=== PATIENT | male | born 1965 | race Two or more races ===

== ENCOUNTER 2017-02-23 08:00 | Inpatient (IN) | payer MEDICAID ==
[~2017-02-23] VITALS: Ht 172.7 cm; Wt 72.6 kg
[2017-02-23] VITALS (35 sets, daily range): BP systolic 57–111; BP diastolic 36–63
[2017-02-23 08:55] LABS: HEMATOCRIT 29.1 % (42.0-52.0); HEMOGLOBIN 10.8 G/DL (14.2-18.0); MEAN CORPUSCULAR VOLUME 104 FL (80-99); PLATELET COUNT 108 K/UL (150-450); RED BLOOD COUNT 2.82 M/UL (4.70-6.10); RED CELL DISTRIBUTION WIDTH 10.9 % (11.6-14.8); WHITE BLOOD COUNT 20.2 K/UL (4.8-10.8)
[2017-02-23 09:00] LABS: AMMONIA 307 umol/L (11-32)
[2017-02-23 09:03] LABS: ANION GAP 26 mmol/L (5-15); BLOOD UREA NITROGEN 189 mg/dL (7-18); CALCIUM 6.6 MG/DL (8.5-10.1); CARBON DIOXIDE 12 MMOL/L (21-32); CHLORIDE 89 MMOL/L (98-107); CREATININE 9.9 MG/DL (0.55-1.30); SODIUM 127 MMOL/L (136-145)
[2017-02-23 09:15] LABS: ALANINE AMINOTRANSFERASE 68 U/L (12-78); ALBUMIN 1.1 G/DL (3.4-5.0); ALBUMIN/GLOBULIN RATIO 0.2 (1.0-2.7); ALKALINE PHOSPHATASE 225 U/L (46-116); ASPARTATE AMINO TRANSFERASE 195 U/L (15-37); BILIRUBIN,DIRECT 13.8 MG/DL (0.0-0.3); BILIRUBIN,TOTAL 17.4 MG/DL (0.2-1.0); CKMB 24.4 NG/ML (0.0-3.6); CREATINE KINASE 684 U/L (26-308)
[2017-02-23] MEDS ORDERED: FUROSEMIDE20 M1 ORAL (09:15)
[2017-02-23] MEDS ORDERED: FOLIC ACID1 MG ORAL (09:15)
[2017-02-23] MEDS ORDERED: MULTIVITAMINS1 EAC8 ORAL (09:15)
[2017-02-23] MEDS ORDERED: CARVEDILOL3.125 MG ORAL (09:15)
[2017-02-23] MEDS ORDERED: SPIRONOLACTONE100 MG ORAL (09:15)
[2017-02-23] MEDS ORDERED: VITAMIN B-1100 MG ORAL (09:16)
[2017-02-23] MEDS ORDERED: Meropenem 1 GM in NS 55 ML IVPB ONE (10:15)
[2017-02-23] MEDS ORDERED: Vancomycin 1 GM in NS 275 ML IVPB ONE (10:15)
[2017-02-23] MEDS ORDERED: Lactulose 20gm/30ml UDC ORAL ONE (10:15)
--- NOTE | 2017-02-23 10:29 | Diagnostic Imaging Report ---
Indication: Dyspnea Comparison: None A single view chest radiograph was obtained. Findings: Cardiomediastinal appearance is within normal limits for age and considering low lung volume. Pulmonary vascularity is appropriate. The diaphragmatic contour is smooth and costophrenic angles are sharp. No pleural effusions are identified. The bones are osteopenic. Impression: No acute findings
[2017-02-23 10:46] LABS: APPEARANCE,URINE SLIGHTLY CLOUDY; BILIRUBIN, URINE 3+ (NEGATIVE); COLOR,URINE BROWN; GLUCOSE, URINE (UA) NEGATIVE (NEGATIVE); KETONES,URINE NEGATIVE (NEGATIVE); LEUKOCYTE ESTERASE ,URINE 1+ (NEGATIVE); NITRITE,URINE POSITIVE (NEGATIVE); PH,URINE 5 (4.5-8.0); PROTEIN,URINE 2+ (NEGATIVE); UROBILINOGEN,URINE 4 MG/DL (0.0-1.0)
[2017-02-23] MEDS ORDERED: Meropenem 1gm vial ONE (10:56)
--- NOTE | 2017-02-23 11:02 | Emergency Room Report ---
History of Present Illness General Chief Complaint: Altered Level of Consciousness Source: Family Member, Medical Record Present Illness HPI This patient apparently has a history severe alcohol abuse and has recently been diagnosed with cirrhosis at [facility]. He was discharged 2 weeks ago. He is brought in by his he states that over night last night and this morning he has become less responsive and confused. The patient is unable to give a history. She denies fever or chills. She denies vomiting. He has been taking his medications as prescribed. There are no other complaints. Allergies: Coded Allergies: No Known Allergies (Verified , 02/27/11) Patient History Past Medical History: see triage record, CHF, other - Cirrhosis, UGI Bleed Social History: Reports: alcohol use, Denies: smoking, drug use Reviewed Nursing Documentation: PMH: Agreed, PSxH: Agreed Nursing Documentation-PMH Past Medical History: No History, Except For Review of Systems All Other Systems: negative except mentioned in HPI Physical Exam Vital Signs Date Time Temp Pulse Resp B/P (MAP) Pulse Ox O2 Delivery O2 Flow Rate FiO2 02/23/17 07:54 95.0 72 17 99/52 99 Room Air Sp02 EP Interpretation: reviewed, normal General Appearance: no apparent distress, other - Altered, somnolent Head: normocephalic, atraumatic Eyes: bilateral eye normal inspection, bilateral eye PERRL, bilateral eye scleral icterus ENT: no angioedema Neck: normal inspection, full range of motion Respiratory: chest non-tender, lungs clear, normal breath sounds, no respiratory distress, no retraction, no accessory muscle use Cardiovascular #1: regular rate, rhythm, no edema Gastrointestinal: normal bowel sounds, non tender, soft, no guarding, no rebound, distended Rectal: deferred Musculoskeletal: swelling - anasarca Neurologic: alert, oriented x3, responsive, motor strength/tone normal, sensory intact, speech normal Skin: jaundice, other - anasarca Procedures Central Line Central Line : Consent: Emergent Central Line Lumen: triple Maximal Sterile Barrier Tech: yes cap, yes mask, yes sterile gown, yes sterile gloves, yes large sterile sheet, yes hand hygiene, yes chlorhexidine prep Central Line Postion: femoral (R) Complications: none Central Line Post Position: sutured, good blood return Attempts: One Patient Tolerated: Well Complications: None Intubation Intubation : Consent: Emergent Time of Intubation: 12:30 Intubation Method: orotracheal Tube Size (cm): 7.5 Medications: Etomidate, Rocuronium Breath Sounds after Intubation: equal Intubation Complications: no complications Post Intubation Xray: Yes Progress/Xray Impression: appropriate tube placement Attempts: One Patient Tolerated: Well Medical Decision Making Diagnostic Impression: Primary Impression: Renal failure Additional Impressions: Sepsis Hypoglycemia Hyponatremia Hepatic encephalopathy Elevated troponin Lactic acidosis Respiratory failure Septic shock ER Course This patient is critically ill. He is in renal failure. He also has end-stage liver disease and has hepatic encephalopathy. He was able to see make on arrival. He also has hyponatremia and elevated troponin. He has a lactic acidosis. He since white blood cell count is elevated. Given the patient's severe renal failure and cirrhosis I was very gentle with IV fluids. He was given 1 L of IV fluids with plans to place a dialysis catheter in undergo dialysis. He was given D50 here in the emergency department. He was also given broad-spectrum antibiotics for a presumed bacteremia or other infectious etiology. An NG tube was placed with lactulose given for the hepatic encephalopathy. He is admitted to the ICU.The patient deteriorated in the emergency department. He continued to have a GCS of 3 and did not improve. He began having agonal breathing. He was intubated by rapid symptoms and the patient without complication or incident. He also developed hypotension after the intubation which is likely medication related, however, I did place a central line in the right femoral vein in the standard fashion and started pressors. He was transferred to the ICU. This patient is critically ill. This patient required complex medical decision- making, aggressive intervention, extensive laboratory workup and monitoring. Critical care time: 40 minutes. Laboratory Tests Test 02/23/17 08:15 02/23/17 10:10 White Blood Count 20.2 K/UL (4.8-10.8) H Red Blood Count 2.82 M/UL (4.70-6.10) L Hemoglobin 10.8 G/DL (14.2-18.0) L Hematocrit 29.1 % (42.0-52.0) L Mean Corpuscular Volume 104 FL (80-99) H Mean Corpuscular Hemoglobin 38.2 PG (27.0-31.0) H Mean Corpuscular Hemoglobin Concent 36.9 G/DL (32.0-36.0) H Red Cell Distribution Width 10.9 % (11.6-14.8) L Platelet Count 108 K/UL (150-450) L Mean Platelet Volume 8.3 FL (6.5-10.1) Neutrophils (%) (Auto) % (45.0-75.0) Lymphocytes (%) (Auto) % (20.0-45.0) Monocytes (%) (Auto) % (1.0-10.0) Eosinophils (%) (Auto) % (0.0-3.0) Basophils (%) (Auto) % (0.0-2.0) Differential Total Cells Counted 100 Neutrophils % (Manual) 85 % (45-75) H Lymphocytes % (Manual) 6 % (20-45) L Monocytes % (Manual) 9 % (1-10) Eosinophils % (Manual) 0 % (0-3) Basophils % (Manual) 0 % (0-2) Band Neutrophils 0 % (0-8) Nucleated Red Blood Cells 1 /100 WBC Platelet Estimate Decreased L Platelet Morphology Normal Hypochromasia 1+ Anisocytosis 1+ Macrocytosis 1+ Spherocytes 2+ Sodium Level 127 MMOL/L (136-145) L Potassium Level 4.0 MMOL/L (3.5-5.1) Chloride Level 89 MMOL/L (98-107) L Carbon Dioxide Level 12 MMOL/L (21-32) L Anion Gap 26 mmol/L (5-15) H Blood Urea Nitrogen 189 mg/dL (7-18) H Creatinine 9.9 MG/DL (0.55-1.30) H Estimate Glomerular Filtration Rate 5.6 mL/min (>60) Glucose Level 52 MG/DL (74-106) L Lactic Acid Level 5.90 mmol/L (0.66-2.22) H Calcium Level 6.6 MG/DL (8.5-10.1) L Total Bilirubin 17.4 MG/DL (0.2-1.0) H Direct Bilirubin 13.8 MG/DL (0.0-0.3) H Aspartate Amino Transferase (AST) 195 U/L (15-37) H Alanine Aminotransferase (ALT) 68 U/L (12-78) Alkaline Phosphatase 225 U/L (46-116) H Ammonia 307 umol/L (11-32) H Total Creatine Kinase 684 U/L (26-308) H Creatine Kinase MB 24.4 NG/ML (0.0-3.6) H Creatine Kinase MB Relative Index 3.5 Troponin I 0.065 ng/mL (0.000-0.056) Total Protein 6.3 G/DL (6.4-8.2) L Albumin 1.1 G/DL (3.4-5.0) L Globulin 5.2 g/dL Albumin/Globulin Ratio 0.2 (1.0-2.7) L Urine Color Brown Urine Appearance Slightly cloudy Urine pH 5 (4.5-8.0) Urine Specific [place] 1.020 (1.005-1.035) Urine Protein 2+ (NEGATIVE) H Urine Glucose (UA) Negative (NEGATIVE) Urine Ketones Negative (NEGATIVE) Urine Occult Blood 2+ (NEGATIVE) H Urine Nitrite Positive (NEGATIVE) H Urine Bilirubin 3+ (NEGATIVE) H Urine Ictotest Positive Urine Urobilinogen 4 MG/DL (0.0-1.0) H Urine Leukocyte Esterase 1+ (NEGATIVE) H Urine RBC 5-10 /HPF (0 - 0) H Urine WBC 2-4 /HPF (0 - 0) Urine Squamous Epithelial Cells Moderate /LPF (NONE/OCC) H Urine Amorphous Sediment Many /LPF (NONE) H Urine Bacteria Moderate /HPF (NONE) H EKG Diagnostic Results Rate: normal ST Segments: no acute changes Rhythm Strip Diag. Results EP Interpretation: yes Rate: 70's Rhythm: NSR, no PVC's, no ectopy Chest X-Ray Diagnostic Results Chest X-Ray Diagnostic Results : Chest X-Ray Ordered: Yes # of Views/Limited/Complete: 1 View Indication: Other - AMS EP Interpretation: Yes Interpretation: no consolidation, no effusion, no pneumothorax, no acute cardiopulmonary disease Impression: No acute disease Last Vital Signs Date Time Temp Pulse Resp B/P (MAP) Pulse Ox O2 Delivery O2 Flow Rate FiO2 02/23/17 10:23 92.0 28 92/46 100 Room Air 02/23/17 09:00 70 Disposition: ADMITTED INPATIENT Condition: Critical Referrals: NOT CHOSEN IPA/,REFERRING (PCP) CHRISTINA CAMPBELL D.O. Feb 23, 2017 11:02
[2017-02-23] MEDS ORDERED: Vancomycin 1gm inj IVPB ONE (11:13)
[2017-02-23] MEDS ORDERED: Albuterol/Ipratropium 3ml neb HHN PRN (11:15)
[2017-02-23] MEDS ORDERED: Morphine Sulfate 4mg/ml Inj IVP PRN (11:15)
[2017-02-23] MEDS ORDERED: Miralax 17gm pkt ORAL PRN (11:15)
--- NOTE | 2017-02-23 12:29 | Diagnostic Imaging Report ---
Indication: NG tube placement Comparison: 02/23/2017 at 08:37 A single view chest radiograph was obtained. Findings: Nasogastric tube is been placed and is in good position with the proximal and distal ports in the stomach. No change otherwise. IMPRESSION: NG tube in good position
[2017-02-23] MEDS ORDERED: Levophed 4mg/4mL Inj IV ONE (13:03)
--- NOTE | 2017-02-23 13:14 | Consultation ---
Consult Note Consult Note This patient apparently has a history severe alcohol abuse and has recently been diagnosed with cirrhosis at [facility]. He was discharged 2 weeks ago. He is brought in by his he states that over night last night and this morning he has become less responsive and confused. The patient is unable to give a history. She denies fever or chills. She denies vomiting. He has been taking his medications as prescribed. There are no other complaints. Assessment/Plan Renal failure acute Sepsis, Shock Hypoglycemia Hyponatremia Hepatic encephalopathy Elevated troponin Lactic acidosis Respiratory failure on vent Poor prognosis foly hydrate dialysis attempt? if hemodynamically stable fluid challenge pressors steroids JORDON PRETTY Feb 23, 2017 13:14
[2017-02-23] MEDS ORDERED: Amikacin Rx to dose MISC PRN (13:15)
--- NOTE | 2017-02-23 13:53 | Diagnostic Imaging Report ---
Indication: Intubation Comparison: Earlier today A single view chest radiograph was obtained. Findings: Endotracheal tube is in the proximal right mainstem bronchus and should be pulled up slightly. NG tube remains in good position. No change otherwise. IMPRESSION: Right mainstem intubation
[2017-02-23] MEDS ORDERED: Pantoprazole Inj IVP SCH ×2 (14:00→21:00)
[2017-02-23] MEDS ORDERED: Hydrocortisone 100mg Inj IV ONE (14:00)
--- NOTE | 2017-02-23 14:07 | Consultation ---
History of Present Illness General Date patient seen: Feb 23, 2017 Time patient seen: 14:02 Chief Complaint: Altered Level of Consciousness Present Illness HPI 51 y/o M with hx of CHF, Ethanol Cirrhosis (recently diagnosed), UGIB presents to ED on 02/23 due to unresponsiveness and confusion. In ED found to be septic with hypothermia Tmin 91.4, hypotensive to 80s, Jocelyne with Cr up to 9.9, lactic acidosis and WBC up to 20.2. Intubated, started on pressors and plan for HD. On IV Vanco, Meropenem and Amikacin. No reported f/c, vomiting Of note recently discharged from [facility] 2 weeks ago where he was diagnosed with cirrhosis Allergies: Coded Allergies: No Known Allergies (Verified , 02/27/11) Medication History Scheduled Carvedilol* (Carvedilol*), 3.125 MG ORAL EVERY 12 HOURS, (Reported) Folic Acid* (Folic Acid*), 1 MG ORAL DAILY, (Reported) Furosemide* (Lasix*), 20 MG ORAL DAILY, (Reported) Multivitamin With Minerals (Multivitamins With Minerals*), 1 TAB ORAL DAILY, ( Reported) Spironolactone* (Spironolactone*), 50 MG ORAL DAILY, (Reported) Thiamine Hcl* (Vitamin B-1*), 100 MG ORAL DAILY, (Reported) Patient History Healthcare decision maker Resuscitation status Full Code Advanced Directive on File No Patient History Narrative PHx: as above Shx: Reports: alcohol use, Denies: smoking, drug use Fhx: non contributory Review of Systems ROS Narrative unable to obtain Physical Exam Physical Exam Narrative General Appearance: no apparent distress, other - Altered, somnolent Head: normocephalic, atraumatic Eyes: bilateral eye normal inspection, bilateral eye PERRL, bilateral eye scleral icterus ENT: no angioedema Neck: normal inspection, full range of motion Respiratory: coarse BS Cardiovascular : regular rate, rhythm, no edema Gastrointestinal: normal bowel sounds, non tender, soft, no guarding, no rebound, distended Musculoskeletal: swelling - anasarca Skin: jaundice, other - anasarca Last 24 Hour Vital Signs Date Time Temp Pulse Resp B/P (MAP) Pulse Ox O2 Delivery O2 Flow Rate FiO2 02/23/17 13:36 40 1/11/18 13:33 79/47 02/23/17 13:28 80/40 02/23/17 13:23 79/46 02/23/17 13:13 67/41 02/23/17 13:04 80 19 40 02/23/17 12:44 94.2 12 57/36 Mechanical Ventilator 02/23/17 12:12 94.2 77 25 92/54 99 Room Air 02/23/17 10:23 92.0 28 92/46 100 Room Air 02/23/17 09:05 91.1 89/50 02/23/17 09:00 91.1 70 24 83/53 100 Room Air 02/23/17 07:54 95.0 72 17 99/52 99 Room Air Laboratory Tests Test 02/23/17 08:15 02/23/17 10:10 02/23/17 11:34 White Blood Count 20.2 K/UL (4.8-10.8) H Red Blood Count 2.82 M/UL (4.70-6.10) L Hemoglobin 10.8 G/DL (14.2-18.0) L Hematocrit 29.1 % (42.0-52.0) L Mean Corpuscular Volume 104 FL (80-99) H Mean Corpuscular Hemoglobin 38.2 PG (27.0-31.0) H Mean Corpuscular Hemoglobin Concent 36.9 G/DL (32.0-36.0) H Red Cell Distribution Width 10.9 % (11.6-14.8) L Platelet Count 108 K/UL (150-450) L Mean Platelet Volume 8.3 FL (6.5-10.1) Neutrophils (%) (Auto) % (45.0-75.0) Lymphocytes (%) (Auto) % (20.0-45.0) Monocytes (%) (Auto) % (1.0-10.0) Eosinophils (%) (Auto) % (0.0-3.0) Basophils (%) (Auto) % (0.0-2.0) Differential Total Cells Counted 100 Neutrophils % (Manual) 85 % (45-75) H Lymphocytes % (Manual) 6 % (20-45) L Monocytes % (Manual) 9 % (1-10) Eosinophils % (Manual) 0 % (0-3) Basophils % (Manual) 0 % (0-2) Band Neutrophils 0 % (0-8) Nucleated Red Blood Cells 1 /100 WBC Platelet Estimate Decreased L Platelet Morphology Normal Hypochromasia 1+ Anisocytosis 1+ Macrocytosis 1+ Spherocytes 2+ Sodium Level 127 MMOL/L (136-145) L Potassium Level 4.0 MMOL/L (3.5-5.1) Chloride Level 89 MMOL/L (98-107) L Carbon Dioxide Level 12 MMOL/L (21-32) L Anion Gap 26 mmol/L (5-15) H Blood Urea Nitrogen 189 mg/dL (7-18) H Creatinine 9.9 MG/DL (0.55-1.30) H Estimat Glomerular Filtration Rate 5.6 mL/min (>60) Glucose Level 52 MG/DL (74-106) L Lactic Acid Level 5.90 mmol/L (0.66-2.22) H 6.80 mmol/L (0.66-2.22) H Calcium Level 6.6 MG/DL (8.5-10.1) L Total Bilirubin 17.4 MG/DL (0.2-1.0) H Direct Bilirubin 13.8 MG/DL (0.0-0.3) H Aspartate Amino Transf (AST/SGOT) 195 U/L (15-37) H Alanine Aminotransferase (ALT/SGPT) 68 U/L (12-78) Alkaline Phosphatase 225 U/L (46-116) H Ammonia 307 umol/L (11-32) H Total Creatine Kinase 684 U/L (26-308) H Creatine Kinase MB 24.4 NG/ML (0.0-3.6) H Creatine Kinase MB Relative Index 3.5 Troponin I 0.065 ng/mL (0.000-0.056) Total Protein 6.3 G/DL (6.4-8.2) L Albumin 1.1 G/DL (3.4-5.0) L Globulin 5.2 g/dL Albumin/Globulin Ratio 0.2 (1.0-2.7) L Urine Color Brown Urine Appearance Slightly cloudy Urine pH 5 (4.5-8.0) Urine Specific [place] 1.020 (1.005-1.035) Urine Protein 2+ (NEGATIVE) H Urine Glucose (UA) Negative (NEGATIVE) Urine Ketones Negative (NEGATIVE) Urine Occult Blood 2+ (NEGATIVE) H Urine Nitrite Positive (NEGATIVE) H Urine Bilirubin 3+ (NEGATIVE) H Urine Ictotest Positive Urine Urobilinogen 4 MG/DL (0.0-1.0) H Urine Leukocyte Esterase 1+ (NEGATIVE) H Urine RBC 5-10 /HPF (0 - 0) H Urine WBC 2-4 /HPF (0 - 0) Urine Squamous Epithelial Cells Moderate /LPF (NONE/OCC) H Urine Amorphous Sediment Many /LPF (NONE) H Urine Bacteria Moderate /HPF (NONE) H Height (Feet): 5 Height (Inches): 8.00 Weight (Pounds): 160 Medications Current Medications Medications (Trade) Dose Ordered Sig/Gabby Route PRN Reason Start Time Stop Time Status Last Admin Dose Admin Acetaminophen (Tylenol) 650 mg Q4H PRN ORAL fever (temp> 100.5F) 02/23/17 11:15 03/25/17 11:14 Albuterol/ Ipratropium (Albuterol/ Ipratropium) 3 ml Q4H PRN HHN Shortness of Breath 02/23/17 11:15 02/28/17 11:14 Amikacin Protocol (Amikacin pharmacy to dose) 1 ea DAILY PRN MISC PER RX PROTOCOL 02/23/17 13:15 03/25/17 13:14 Amikacin Sulfate 500 mg/Sodium Chloride 112 ml @ 224 mls/hr ONCE ONCE IV 02/23/17 15:00 02/23/17 15:29 Dextrose/Sodium Chloride 1,000 ml @ 125 mls/hr Q8H IV 02/23/17 14:00 03/25/17 13:59 Ertapenem 0.5 gm/ Sodium Chloride 55 ml @ 110 mls/hr Q24H IV 02/24/17 11:00 03/01/17 10:59 Heparin Sodium (Porcine) (Heparin 5000 units/ml) 5,000 units EVERY 12 HOURS SUBQ 02/23/17 21:00 03/25/17 20:59 Hydrocortisone (Solu-CORTEF) 100 mg EVERY 8 HOURS IV 02/23/17 22:00 03/25/17 21:59 Hydrocortisone (Solu-CORTEF) 100 mg ONCE ONCE IV 02/23/17 14:00 02/23/17 14:01 Norepinephrine Bitartrate 4 mg/ Dextrose 254 ml @ 0 mls/hr Q24H IV 02/23/17 11:15 03/25/17 11:14 02/23/17 13:13 Ondansetron HCl (Zofran) 4 mg Q6H PRN IVP Nausea & Vomiting 02/23/17 11:15 03/25/17 11:14 Pantoprazole (Protonix) 40 mg DAILY IVP 02/23/17 14:00 03/25/17 13:59 Pantoprazole (Protonix) 40 mg DAILY IVP 02/24/17 09:00 03/26/17 08:59 Pantoprazole (Protonix) 40 mg EVERY 12 HOURS IVP 02/23/17 21:00 02/23/17 21:01 Vancomycin HCl (Vanco rx to dose) 1 ea DAILY PRN MISC PER RX PROTOCOL 02/23/17 13:15 03/25/17 13:14 Assessment/Plan Assessment/Plan Abx: IV Vanco 02/23- Meropenem 02/23- Amikacin 02/23- Assessment: Septic Shock- r/o SBP, bacteremia, UTI -u/a WBC 2-4, nit +, leuk est +1; ucx p -Bcx p -CXR: no acute findings Hypothermia/Leukocytosis Acute renal failure to be started on HD Lactic acidosis Anion gap metabolic acidosis Transaminitis (AST) Ethanol Cirrhosis Plan: -Continue IV Vanco, Meropenem and Amikacin #1 pending cultures -f/u cx -Monitor CBC/BMP, temperatures -ETT/ICU care -Aspiration precautions Thank you for this consultation. Will continue to follow along with you. Discussed with Jolie Rick M.D. Feb 23, 2017 14:07
[2017-02-23] MEDS: D5NS 1,000 ML IV SCH ×2 (14:20→23:18)
[2017-02-23] MEDS ORDERED: Amikacin 500 MG in NS 110 ML IV ONE (15:00)
--- NOTE | 2017-02-23 15:39 | Diagnostic Imaging Report ---
Indication: Patient requires hemodialysis. Findings: After the indications, procedure, risks, complications, and alternatives of the procedure were explained, written informed consent was obtained. The neck was prepped with alcohol. All elements of maximal sterile barrier technique were followed including usage of a cap, mask, sterile gown, sterile gloves, hand hygiene and a large sterile sheet. 1% lidocaine was used to anesthetize the skin. Sonographic evaluation was performed demonstrating a patent and compressible jugular vein. Access was obtained under real-time ultrasound guidance using an 18 gauge needle and a digital image was saved in archive. An 0.035 wire was then advanced into the vein. Needle exchanged for a dilator. A temporary hemodialysis catheter was then advanced over the wire. Wire was removed. Catheter was secured to the skin using 2-0 Prolene suture. Both ports aspirate and flush easily. The procedure was performed at the bedside. Postprocedure chest x-ray shows good positioning of the catheter with the tip at the junction of the right atrium and SVC.. Impression: Successful placement of right jugular hemodialysis catheter.
[2017-02-23] MEDS ORDERED: Sodium Bicarbonate 50ml Carp IV ONE (16:40)
--- NOTE | 2017-02-23 19:46 | Pulmonolgy Critical Care Note ---
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 Critical Care - Objective Last 24 Hour Vital Signs Date Time Temp Pulse Resp B/P (MAP) Pulse Ox O2 Delivery O2 Flow Rate FiO2 02/23/17 19:29 26 79/69 98 Endotracheal Tube 02/23/17 19:29 02/23/17 19:25 96 33 30 02/23/17 19:00 83/51 02/23/17 19:00 94 22 83/51 93 Mechanical Ventilator 30 02/23/17 18:45 94 19 84/46 94 Mechanical Ventilator 30 02/23/17 18:30 89 21 90/51 93 Mechanical Ventilator 30 02/23/17 18:15 90 24 91/50 96 Mechanical Ventilator 30 02/23/17 18:00 86 22 88/46 96 Mechanical Ventilator 30 02/23/17 18:00 88/46 02/23/17 17:45 84 18 83/45 96 Mechanical Ventilator 30 02/23/17 17:30 82 19 81/41 96 Mechanical Ventilator 30 02/23/17 17:30 30 02/23/17 17:19 82/44 02/23/17 17:15 83 19 82/44 99 Mechanical Ventilator 40 02/23/17 17:05 83 18 30 02/23/17 17:00 85 19 88/45 99 Mechanical Ventilator 40 02/23/17 17:00 88/45 02/23/17 16:45 85 16 88/44 99 Mechanical Ventilator 40 02/23/17 16:30 83 18 88/47 98 Mechanical Ventilator 40 02/23/17 16:15 83 19 89/47 99 Mechanical Ventilator 40 02/23/17 16:00 95.2 82 22 91/45 100 Mechanical Ventilator 40 02/23/17 16:00 40 02/23/17 16:00 91/45 02/23/17 15:45 81 20 97/52 99 Mechanical Ventilator 40 02/23/17 15:32 30 02/23/17 15:30 83 19 91/47 99 Mechanical Ventilator 40 02/23/17 15:25 81 20 40 02/23/17 15:15 82 18 90/44 99 Mechanical Ventilator 40 02/23/17 15:00 95/49 02/23/17 15:00 83 22 95/49 100 Mechanical Ventilator 40 02/23/17 14:45 82 21 97/52 99 Mechanical Ventilator 40 02/23/17 14:30 83 22 97/54 98 Mechanical Ventilator 40 02/23/17 14:27 95.0 81 18 100 02/23/17 14:15 81 18 98/56 100 Mechanical Ventilator 40 02/23/17 14:00 95.0 80 20 89/54 100 Mechanical Ventilator 40 02/23/17 14:00 40 02/23/17 14:00 89/52 02/23/17 14:00 80 02/23/17 13:50 80 19 40 02/23/17 13:36 40 02/23/17 13:33 79/47 02/23/17 13:28 80/40 02/23/17 13:23 79/46 02/23/17 13:13 67/41 02/23/17 13:04 80 19 40 02/23/17 12:44 94.2 12 57/36 Mechanical Ventilator 02/23/17 12:12 94.2 77 25 92/54 99 Room Air 02/23/17 10:23 92.0 28 92/46 100 Room Air 02/23/17 09:05 91.1 89/50 02/23/17 09:00 91.1 70 24 83/53 100 Room Air 02/23/17 07:54 95.0 72 17 99/52 99 Room Air Status: awake, obtunded Condition: critical Neck: full ROM Heart: HR/BP stable Abdomen: soft Micro: Microbiology Date/Time Source Procedure Growth Status 02/23/17 17:00 Nasopharynx Influenza Types A,B Antigen (KAYKAY) - Final Complete Accucheck: 82 Critical Care - Subjective ROS Limited/Unobtainable: Yes ICU Day: 1 Intubation Day: 1 Interval Events: 51 year old male with history of severe alcohol abuse and has recently been diagnosed with cirrhosis at [facility]. He was discharged 2 weeks ago. He is brought in by his he states that over night last night and this morning he has become less responsive and confused. The patient is unable to give a history. She denies fever or chills. He was found to be in Multi-organ failure, basically dying of end stage liver failure. He was intubated and dialyzed in ER and transferred to ICU. Condition: critical FI02: 30 Vent Support Breath Rate: 16 Vent Support Mode: AC Vent Tidal Volume: 450 Sputum Amount: Moderate PEEP: 5.0 PIP: 16 Fluids: d5 NS 150 Drips: levophed CXR: ET at Mandi, ET-Tube: 7.5 ET Position: 22 Labs: Laboratory Tests Test 02/23/17 08:15 02/23/17 10:10 02/23/17 11:34 02/23/17 15:00 White Blood Count 20.2 K/UL (4.8-10.8) H Red Blood Count 2.82 M/UL (4.70-6.10) L Hemoglobin 10.8 G/DL (14.2-18.0) L Hematocrit 29.1 % (42.0-52.0) L Mean Corpuscular Volume 104 FL (80-99) H Mean Corpuscular Hemoglobin 38.2 PG (27.0-31.0) H Mean Corpuscular Hemoglobin Concent 36.9 G/DL (32.0-36.0) H Red Cell Distribution Width 10.9 % (11.6-14.8) L Platelet Count 108 K/UL (150-450) L Mean Platelet Volume 8.3 FL (6.5-10.1) Neutrophils (%) (Auto) % (45.0-75.0) Lymphocytes (%) (Auto) % (20.0-45.0) Monocytes (%) (Auto) % (1.0-10.0) Eosinophils (%) (Auto) % (0.0-3.0) Basophils (%) (Auto) % (0.0-2.0) Differential Total Cells Counted 100 Neutrophils % (Manual) 85 % (45-75) H Lymphocytes % (Manual) 6 % (20-45) L Monocytes % (Manual) 9 % (1-10) Eosinophils % (Manual) 0 % (0-3) Basophils % (Manual) 0 % (0-2) Band Neutrophils 0 % (0-8) Nucleated Red Blood Cells 1 /100 WBC Platelet Estimate Decreased L Platelet Morphology Normal Hypochromasia 1+ Anisocytosis 1+ Macrocytosis 1+ Spherocytes 2+ Sodium Level 127 MMOL/L (136-145) L Potassium Level 4.0 MMOL/L (3.5-5.1) Chloride Level 89 MMOL/L (98-107) L Carbon Dioxide Level 12 MMOL/L (21-32) L Anion Gap 26 mmol/L (5-15) H Blood Urea Nitrogen 189 mg/dL (7-18) H Creatinine 9.9 MG/DL (0.55-1.30) H Estimat Glomerular Filtration Rate 5.6 mL/min (>60) Glucose Level 52 MG/DL (74-106) L Lactic Acid Level 5.90 mmol/L (0.66-2.22) H 6.80 mmol/L (0.66-2.22) H Calcium Level 6.6 MG/DL (8.5-10.1) L Total Bilirubin 17.4 MG/DL (0.2-1.0) H Direct Bilirubin 13.8 MG/DL (0.0-0.3) H Aspartate Amino Transf (AST/SGOT) 195 U/L (15-37) H Alanine Aminotransferase (ALT/SGPT) 68 U/L (12-78) Alkaline Phosphatase 225 U/L (46-116) H Ammonia 307 umol/L (11-32) H Total Creatine Kinase 684 U/L (26-308) H Creatine Kinase MB 24.4 NG/ML (0.0-3.6) H Creatine Kinase MB Relative Index 3.5 Troponin I 0.065 ng/mL (0.000-0.056) Total Protein 6.3 G/DL (6.4-8.2) L Albumin 1.1 G/DL (3.4-5.0) L Globulin 5.2 g/dL Albumin/Globulin Ratio 0.2 (1.0-2.7) L Urine Color Brown Urine Appearance Slightly cloudy Urine pH 5 (4.5-8.0) Urine Specific [place] 1.020 (1.005-1.035) Urine Protein 2+ (NEGATIVE) H Urine Glucose (UA) Negative (NEGATIVE) Urine Ketones Negative (NEGATIVE) Urine Occult Blood 2+ (NEGATIVE) H Urine Nitrite Positive (NEGATIVE) H Urine Bilirubin 3+ (NEGATIVE) H Urine Ictotest Positive Urine Urobilinogen 4 MG/DL (0.0-1.0) H Urine Leukocyte Esterase 1+ (NEGATIVE) H Urine RBC 5-10 /HPF (0 - 0) H Urine WBC 2-4 /HPF (0 - 0) Urine Squamous Epithelial Cells Moderate /LPF (NONE/OCC) H Urine Amorphous Sediment Many /LPF (NONE) H Urine Bacteria Moderate /HPF (NONE) H Arterial Blood pH 7.060 (7.350-7.450) Arterial Blood Partial Pressure CO2 44.3 mmHg (35.0-45.0) Arterial Blood Partial Pressure O2 157.2 mmHg (75.0-100.0) H Arterial Blood HCO3 12.5 mmol/L (22.0-26.0) L Arterial Blood Oxygen Saturation 98.2 % (92.0-98.0) H Arterial Blood Base Excess -17.0 Nigel Test Positive Test 02/23/17 17:00 Lactic Acid Level 5.00 mmol/L (0.66-2.22) H KAT DARNELL Feb 23, 2017 19:46
--- NOTE | 2017-02-23 20:01 | History & Physical ---
History and Physical History & Physicial Dictated for Int Med-Dr Zuniga no. [id number]. ICU CHU ESQUIVEL Feb 23, 2017 20:01
[2017-02-23] MEDS: Heparin 5000 units/ml inj SUBQ SCH (21:00)
[2017-02-23] MEDS: Hydrocortisone 100mg Inj IV SCH (23:19)
[2017-02-23] MEDS ORDERED: Vancomycin 1 GM in D5W 275 ML IV SCH (23:45)
[2017-02-24] VITALS (49 sets, daily range): BP systolic 99–123; BP diastolic 43–76
--- NOTE | 2017-02-24 00:45 | History and Physical Report ---
DATE OF ADMISSION: 02/23/2017 Dictating for Raz Zuniga M.D. CHIEF COMPLAINT: The patient is a 51-year-old male, who presents with chief complaint of altered mental status. HISTORY OF PRESENT ILLNESS: Much of the history and physical is obtained from the patient's chart. The patient herself is unable to contribute much to the history and physical. The patient was apparently admitted to [facility] two weeks ago. The patient was diagnosed with alcoholic cirrhosis of liver. The patient was discharged home. According to the patient's , she found him less responsive this morning. The patient is also confused. The patient presented to [facility]. The patient is admitted with altered mental status to rule out hepatic encephalopathy versus sepsis. PAST MEDICAL HISTORY: Significant for: 1. Alcoholic cirrhosis of the liver. 2. Alcohol dependence. 3. History of upper gastrointestinal hemorrhage. PAST SURGICAL HISTORY: The patient denies. CURRENT MEDICATIONS: 1. Carvedilol 3.125 mg p.o. daily. 2. Folic acid 1 mg p.o. daily 3. Lasix 20 mg p.o. daily. 4. Spironolactone 50 mg p.o. daily. 5. Vitamin B1 100 mg p.o. daily. ALLERGIES: No known drug allergies. SOCIAL HISTORY: The patient is . The patient admits to alcohol use as above. The patient denies tobacco use. REVIEW OF SYSTEMS: Unable to assess secondary to the patient's mental status. PHYSICAL EXAMINATION: VITAL SIGNS: Temperature 95.2, respirations 22, pulse 82, and blood pressure 91/45. GENERAL: The patient is a well-developed male, who is confused. HEENT: Eyes, pupils equal and responsive to light and accommodation. Extraocular movements are intact. NECK: Supple without lymphadenopathy. CHEST: Lungs are clear to auscultation bilaterally without wheezes or rales. The patient is on mechanical ventilation. CARDIOVASCULAR: Regular rate. S1 and S2 are normal. ABDOMEN: Soft, nontender, nondistended. Positive bowel sounds. No evidence of hepatosplenomegaly. Currently, no rebound or guarding noted. EXTREMITIES: Negative for clubbing, cyanosis, or edema. NEUROLOGIC: Cranial nerves II through XII are grossly intact without focal deficits. LABORATORY STUDIES: WBC 20.3, hemoglobin 10.8, hematocrit 29.1, and platelets 108,000. Sodium 127, potassium 4.0, chloride 89, CO2 12, BUN 189, creatinine 9.9, and glucose 52. Lactic acid 5.9. Troponin 0.065. Liver function tests were elevated with AST of 195 and alkaline phosphatase of 225. ASSESSMENT: This is a 51-year-old male with: 1. Respiratory failure. 2. Altered mental status. 3. Alcohol dependence. 4. Congestive heart failure. 5. Alcoholic cirrhosis of the liver. 6. Elevated liver function tests. 7. Metabolic acidosis. TREATMENT: 1. Respiratory failure. Pulmonary consultation has been obtained with Dr. Mi. The patient is currently on a mechanical ventilator. We will follow recommendations of pulmonary. 2. Altered mental status. This may be secondary to sepsis versus hypoxia. An infectious disease consultation has been obtained with Dr. Sandoval. We will follow recommendations of infectious disease. 3. Alcohol dependence. 4. Congestive heart failure. Continue Lasix as above. 5. Alcoholic cirrhosis of the liver. 6. Elevated liver function tests, this is probably secondary to chronic alcoholism. 7. Metabolic acidosis. Lalito Singh M.D. DR: EMANUEL JOB#: [id number] CC:
[2017-02-24 05:33] LABS: PLATELET COUNT 60 K/UL (150-450); RED CELL DISTRIBUTION WIDTH 11.5 % (11.6-14.8)
[2017-02-24 05:55] LABS: AMMONIA 144 umol/L (11-32)
[2017-02-24] MEDS: D5NS 1,000 ML IV SCH ×3 (06:04→21:56)
[2017-02-24] MEDS: Hydrocortisone 100mg Inj IV SCH ×3 (06:04→21:56)
[2017-02-24 06:06] LABS: ALANINE AMINOTRANSFERASE 113 U/L (12-78); ALBUMIN 1.5 G/DL (3.4-5.0); ALBUMIN/GLOBULIN RATIO 0.3 (1.0-2.7); ALKALINE PHOSPHATASE 220 U/L (46-116); ANION GAP 18 mmol/L (5-15); ASPARTATE AMINO TRANSFERASE 481 U/L (15-37); BILIRUBIN,TOTAL 19.3 MG/DL (0.2-1.0); BLOOD UREA NITROGEN 94 mg/dL (7-18); CALCIUM 6.1 MG/DL (8.5-10.1); CARBON DIOXIDE 23 MMOL/L (21-32); CHLORIDE 99 MMOL/L (98-107); CREATININE 6.2 MG/DL (0.55-1.30); POTASSIUM 3.5 MMOL/L (3.5-5.1); SODIUM 140 MMOL/L (136-145)
[2017-02-24 06:12] LABS: WHITE BLOOD COUNT 37.8 K/UL (4.8-10.8)
[2017-02-24 06:23] LABS: CREATINE KINASE 634 U/L (26-308); GAMMA GLUTAMYL TRANSPEPTIDASE 150 U/L (5-85)
[2017-02-24 06:42] LABS: CHOLESTEROL < 50 MG/DL (< 200); HDL CHOLESTEROL 9 MG/DL (40-60); TRIGLYCERIDES 88 MG/DL (30-150)
[2017-02-24 07:28] LABS: BILIRUBIN,DIRECT 14.6 MG/DL (0.0-0.3)
[2017-02-24 07:33] LABS: PHOSPHORUS 5.8 MG/DL (2.5-4.9)
[2017-02-24] MEDS: Heparin 5000 units/ml inj SUBQ SCH ×2 (08:58→21:24)
[2017-02-24] MEDS ORDERED: Pantoprazole Inj IVP SCH (09:00)
[2017-02-24] MEDS ORDERED: Vancomycin 1gm/D5W 275ml IVPB ONE ×2 (10:00)
--- NOTE | 2017-02-24 10:28 | Pulmonolgy Critical Care Note ---
Critical Care - Asmt/Plan Problems: (1) Multiorgan failure (2) Septic shock (3) Respiratory failure (4) Hepatic encephalopathy (5) Renal failure Respiratory: monitor respiratory rate, adjust FIO2, CXR Cardiac: continue to monitor HR/BP Renal: F/U I&O Infectious Disease: check cultures Gastrointestinal: hold feedings Endocrine: monitor blood sugar, check TSH Hematologic: monitor H/H Neurologic: PRN Morphine Notes Reviewed: er rn Discussed with: nurses, consultants, case supervisor, other - I suggest end of life care and terminal extubation. Critical Care - Objective Last 24 Hour Vital Signs Date Time Temp Pulse Resp B/P (MAP) Pulse Ox O2 Delivery O2 Flow Rate FiO2 02/24/17 08:48 92 29 30 02/24/17 08:00 30 02/24/17 08:00 96 02/24/17 08:00 110/59 02/24/17 06:56 94 29 30 02/24/17 06:04 100/50 02/24/17 05:22 98 29 30 02/24/17 04:00 115/60 02/24/17 04:00 30 02/24/17 04:00 102 02/24/17 03:15 104 29 30 02/24/17 03:00 107/53 02/24/17 02:00 107/56 02/24/17 01:30 105 28 115/62 100 Mechanical Ventilator 30 02/24/17 01:15 101 28 30 02/24/17 01:00 101 28 109/59 100 Mechanical Ventilator 30 02/24/17 01:00 109/59 02/24/17 00:30 105 28 99/56 100 Mechanical Ventilator 30 02/24/17 00:08 79/45 02/24/17 00:00 99.0 104 28 102/43 100 Mechanical Ventilator 30 02/24/17 00:00 30 02/23/17 23:30 106 27 108/57 100 Mechanical Ventilator 30 02/23/17 23:18 96/58 02/23/17 23:13 106 29 30 02/23/17 23:00 106 27 96/58 99 Mechanical Ventilator 30 02/23/17 22:30 106 27 111/43 99 Mechanical Ventilator 30 02/23/17 22:00 105 26 102/50 99 Mechanical Ventilator 30 02/23/17 22:00 102/50 02/23/17 21:30 104 25 105/53 99 Mechanical Ventilator 30 02/23/17 21:24 108 31 30 02/23/17 21:00 110/54 02/23/17 21:00 105 25 110/54 96 Mechanical Ventilator 30 02/23/17 20:30 105 25 110/63 96 Mechanical Ventilator 30 02/23/17 20:00 98.8 99 22 92/50 93 Mechanical Ventilator 30 02/23/17 20:00 30 02/23/17 20:00 92/50 02/23/17 20:00 100 02/23/17 19:29 26 79/69 98 Endotracheal Tube 02/23/17 19:29 02/23/17 19:25 96 33 30 02/23/17 19:00 83/51 02/23/17 19:00 94 22 83/51 93 Mechanical Ventilator 30 02/23/17 18:45 94 19 84/46 94 Mechanical Ventilator 30 02/23/17 18:30 89 21 90/51 93 Mechanical Ventilator 30 02/23/17 18:15 90 24 91/50 96 Mechanical Ventilator 30 02/23/17 18:00 86 22 88/46 96 Mechanical Ventilator 30 02/23/17 18:00 88/46 02/23/17 17:45 84 18 83/45 96 Mechanical Ventilator 30 02/23/17 17:30 82 19 81/41 96 Mechanical Ventilator 30 02/23/17 17:30 30 02/23/17 17:19 82/44 02/23/17 17:15 83 19 82/44 99 Mechanical Ventilator 40 02/23/17 17:05 83 18 30 02/23/17 17:00 85 19 88/45 99 Mechanical Ventilator 40 02/23/17 17:00 88/45 02/23/17 16:45 85 16 88/44 99 Mechanical Ventilator 40 02/23/17 16:30 83 18 88/47 98 Mechanical Ventilator 40 02/23/17 16:15 83 19 89/47 99 Mechanical Ventilator 40 02/23/17 16:00 95.2 82 22 91/45 100 Mechanical Ventilator 40 02/23/17 16:00 40 02/23/17 16:00 91/45 02/23/17 15:45 81 20 97/52 99 Mechanical Ventilator 40 02/23/17 15:32 30 02/23/17 15:30 83 19 91/47 99 Mechanical Ventilator 40 02/23/17 15:25 81 20 40 02/23/17 15:15 82 18 90/44 99 Mechanical Ventilator 40 02/23/17 15:00 95/49 02/23/17 15:00 83 22 95/49 100 Mechanical Ventilator 40 02/23/17 14:45 82 21 97/52 99 Mechanical Ventilator 40 02/23/17 14:30 83 22 97/54 98 Mechanical Ventilator 40 02/23/17 14:27 95.0 81 18 100 02/23/17 14:15 81 18 98/56 100 Mechanical Ventilator 40 02/23/17 14:00 95.0 80 20 89/54 100 Mechanical Ventilator 40 02/23/17 14:00 40 02/23/17 14:00 89/52 02/23/17 14:00 80 02/23/17 13:50 80 19 40 02/23/17 13:36 40 02/23/17 13:33 79/47 02/23/17 13:28 80/40 02/23/17 13:23 79/46 02/23/17 13:13 67/41 02/23/17 13:04 80 19 40 02/23/17 12:44 94.2 12 57/36 Mechanical Ventilator 02/23/17 12:12 94.2 77 25 92/54 99 Room Air Status: obtunded Condition: critical HEENT: atraumatic Lungs: clear Heart: HR/BP stable, regular Abdomen: non-tender, feeding tube Extremities: edema Decubiti: location Micro: Microbiology Date/Time Source Procedure Growth Status 02/23/17 17:00 Nasopharynx Influenza Types A,B Antigen (KAYKAY) - Final Complete 02/23/17 10:10 Urine,Clean Catch Urine Culture - Preliminary NO GROWTH Resulted Accucheck: 82 Critical Care - Subjective ROS Limited/Unobtainable: No ICU Day: 2 Condition: critical EKG Rhythm: Sinus Rhythm FI02: 30 Vent Support Breath Rate: 16 Vent Support Mode: AC Vent Tidal Volume: 450 Sputum Amount: Scant PEEP: 5.0 PIP: 16 I&O: Intake and Output 02/23/17 02/24/17 19:00 07:00 Intake Total 2524.41 ml 1483.14 ml Output Total 315 ml 0 ml Balance 2209.41 ml 1483.14 ml Intake IV Total 2524.41 ml 1483.14 ml Output Urine Total 65 ml 0 ml Gastric Drainage Total 250 ml # Bowel Movements 1 ET-Tube: 7.5 ET Position: 22 Labs: Laboratory Tests Test 02/23/17 11:34 02/23/17 15:00 02/23/17 17:00 02/24/17 04:45 Lactic Acid Level 6.80 mmol/L (0.66-2.22) H 5.00 mmol/L (0.66-2.22) H 5.90 mmol/L (0.66-2.22) H Arterial Blood pH 7.060 (7.350-7.450) Arterial Blood Partial Pressure CO2 44.3 mmHg (35.0-45.0) Arterial Blood Partial Pressure O2 157.2 mmHg (75.0-100.0) H Arterial Blood HCO3 12.5 mmol/L (22.0-26.0) L Arterial Blood Oxygen Saturation 98.2 % (92.0-98.0) H Arterial Blood Base Excess -17.0 Nigel Test Positive White Blood Count 37.8 K/UL (4.8-10.8) #*H Red Blood Count 2.44 M/UL (4.70-6.10) L Hemoglobin 9.7 G/DL (14.2-18.0) L Hematocrit 25.6 % (42.0-52.0) L Mean Corpuscular Volume 105 FL (80-99) H Mean Corpuscular Hemoglobin 39.7 PG (27.0-31.0) H Mean Corpuscular Hemoglobin Concent 37.8 G/DL (32.0-36.0) H Red Cell Distribution Width 11.5 % (11.6-14.8) L Platelet Count 60 K/UL (150-450) L Mean Platelet Volume 8.9 FL (6.5-10.1) Neutrophils (%) (Auto) % (45.0-75.0) Lymphocytes (%) (Auto) % (20.0-45.0) Monocytes (%) (Auto) % (1.0-10.0) Eosinophils (%) (Auto) % (0.0-3.0) Basophils (%) (Auto) % (0.0-2.0) Neutrophils % (Manual) Pending Lymphocytes % (Manual) Pending Platelet Estimate Pending Platelet Morphology Pending Sodium Level 140 MMOL/L (136-145) # Potassium Level 3.5 MMOL/L (3.5-5.1) Chloride Level 99 MMOL/L (98-107) Carbon Dioxide Level 23 MMOL/L (21-32) Anion Gap 18 mmol/L (5-15) H Blood Urea Nitrogen 94 mg/dL (7-18) #H Creatinine 6.2 MG/DL (0.55-1.30) H Estimat Glomerular Filtration Rate 9.6 mL/min (>60) Glucose Level 149 MG/DL (74-106) H Hemoglobin A1c 4.4 % (4.3-6.0) Uric Acid 9.4 MG/DL (2.6-7.2) H Calcium Level 6.1 MG/DL (8.5-10.1) L Phosphorus Level 5.8 MG/DL (2.5-4.9) H Magnesium Level 2.0 MG/DL (1.8-2.4) Total Bilirubin 19.3 MG/DL (0.2-1.0) H Direct Bilirubin 14.6 MG/DL (0.0-0.3) H Gamma Glutamyl Transpeptidase 150 U/L (5-85) H Aspartate Amino Transf (AST/SGOT) 481 U/L (15-37) H Alanine Aminotransferase (ALT/SGPT) 113 U/L (12-78) H Alkaline Phosphatase 220 U/L (46-116) H Ammonia 144 umol/L (11-32) H Total Creatine Kinase 634 U/L (26-308) H Troponin I 0.762 ng/mL (0.000-0.056) C-Reactive Protein, Quantitative 6.8 mg/dL (0.00-0.90) H Pro-B-Type Natriuretic Peptide 5660 pg/mL (0-125) H Total Protein 5.8 G/DL (6.4-8.2) L Albumin 1.5 G/DL (3.4-5.0) L Globulin 4.3 g/dL Albumin/Globulin Ratio 0.3 (1.0-2.7) L Triglycerides Level 88 MG/DL (30-150) Cholesterol Level < 50 MG/DL (< 200) LDL Cholesterol 20 mg/dL (<100) HDL Cholesterol 9 MG/DL (40-60) L Cholesterol/HDL Ratio 5.6 (3.3-4.4) H Vitamin B12 Level > 2000 PG/ML (193-986) H Random Vancomycin Level 10.8 ug/mL Test 02/24/17 06:30 02/24/17 08:00 Arterial Blood pH 7.430 (7.350-7.450) Arterial Blood Partial Pressure CO2 31.2 mmHg (35.0-45.0) L Arterial Blood Partial Pressure O2 85.2 mmHg (75.0-100.0) Arterial Blood HCO3 20.5 mmol/L (22.0-26.0) L Arterial Blood Oxygen Saturation 95.4 % (92.0-98.0) Arterial Blood Base Excess -3.1 Nigel Test Positive Lactic Acid Level 4.80 mmol/L (0.66-2.22) H KAT DARNELL Feb 24, 2017 10:28
[2017-02-24] MEDS ORDERED: Ertapenem 0.5 GM in NS 55 ML IV SCH (11:00)
[2017-02-24] MEDS: Meropenem 500 MG in NS 55 ML IVPB SCH (11:14)
[2017-02-24] MEDS: Pantoprazole Inj IVP SCH (11:14)
[2017-02-24 11:42] LABS: RED BLOOD COUNT 2.97 M/UL (4.70-6.10)
[2017-02-24 11:43] LABS: MEAN CORPUSCULAR VOLUME 94 FL (80-99)
--- NOTE | 2017-02-24 11:45 | Diagnostic Imaging Report ---
Indication: ET tube Dustman Technique: XRAY Chest 1v Comparison: 02/23/2017, 13:23 Findings: Interval retraction of ET tube, tip now approximately 2 cm above the shaunna. NG tube tip unchanged in the proximal stomach, side-port in the region of the GE junction. Advancement is recommended. Interval placement of right IJ approach central line. Catheter tip in the region of the cavoatrial junction. Heart size and mediastinal contours are stable. There is interval development of mild vascular congestion. There is no pneumothorax. There is patchy left basilar atelectasis. No pleural effusion. No acute osseous abnormality seen. Impression: Interval retraction of ET tube, tip now 2 cm above the shaunna. Interval placement of right IJ approach central venous catheter, tip in the region of the cavoatrial junction. No pneumothorax. NG tube tip is unchanged in position in the proximal stomach. Side port in the region of the gastroesophageal junction. Advancement is recommended for more ideal positioning. Interval development of mild vascular congestion patchy left basilar opacities thought to represent atelectasis. Clinical correlation and follow-up exam recommended.
[2017-02-24] MEDS ORDERED: Lactulose 20gm/30ml UDC NG SCH (12:00)
--- NOTE | 2017-02-24 13:29 | Cardiology Report ---
APPROVED REPORT EKG Measurement Heart [id number] Normal sinus rhythm Nonspecific T wave abnormality Abnormal ECG
--- NOTE | 2017-02-24 14:48 | Infectious Diseases Prog Note ---
Assessment/Plan Assessment/Plan Abx: IV Vanco 02/23- Meropenem 02/23- Amikacin 02/23- Assessment: Septic Shock- r/o SBP, bacteremia, UTI- ongoing/worsening- r/o candidemia -u/a WBC 2-4, nit +, leuk est +1; ucx NTD -Bcx p -CXR 02/24: Interval development of mild vascular congestion patchy left basilar opacities thought to represent atelectasis; sp cx p -CXR: no acute findings Hypothermia- now febrile/Leukocytosis, worsening Acute renal failure on HD Lactic acidosis, improving Anion gap metabolic acidosis Transaminitis (AST, now ALT; worsening) Ethanol Cirrhosis Plan: -Continue IV Vanco, Meropenem and Amikacin #2 and start empiric Micafungin pending cultures -f/u cx -Monitor CBC/BMP, temperatures -ETT/ICU care -Aspiration precautions -Cocci ab, CRAg Thank you for this consultation. Will continue to follow along with you. Discussed with RN. Subjective Allergies: Coded Allergies: No Known Allergies (Verified , 02/27/11) Subjective Tm 101 worsening leukocytosis cx P increased pressors requirements Objective Vital Signs Last 24 Hour Vital Signs Date Time Temp Pulse Resp B/P (MAP) Pulse Ox O2 Delivery O2 Flow Rate FiO2 02/24/17 13:02 86 24 30 02/24/17 12:00 85 02/24/17 12:00 30 02/24/17 12:00 86 23 119/63 97 Mechanical Ventilator 30 02/24/17 11:45 86 23 113/57 97 Mechanical Ventilator 30 02/24/17 11:30 86 23 117/61 97 Mechanical Ventilator 30 02/24/17 11:15 86 23 110/59 97 Mechanical Ventilator 30 02/24/17 11:00 87 23 102/54 97 Mechanical Ventilator 30 02/24/17 10:45 88 24 120/62 97 Mechanical Ventilator 30 02/24/17 10:31 89 25 30 02/24/17 10:30 88 25 114/64 97 Mechanical Ventilator 30 02/24/17 10:15 89 24 117/67 98 Mechanical Ventilator 30 02/24/17 10:00 89 25 123/65 97 Mechanical Ventilator 30 02/24/17 10:00 98.7 02/24/17 09:45 90 27 114/59 98 Mechanical Ventilator 30 02/24/17 09:30 91 29 122/65 97 Mechanical Ventilator 30 02/24/17 09:15 91 25 123/67 97 Mechanical Ventilator 30 02/24/17 09:00 91 26 123/67 97 Mechanical Ventilator 30 02/24/17 08:48 92 29 30 02/24/17 08:45 92 27 117/64 97 Mechanical Ventilator 30 02/24/17 08:30 93 25 115/62 97 Mechanical Ventilator 30 02/24/17 08:15 91 27 112/61 96 Mechanical Ventilator 30 02/24/17 08:00 30 02/24/17 08:00 96 02/24/17 08:00 101.0 93 26 107/57 95 Mechanical Ventilator 30 02/24/17 08:00 110/59 02/24/17 07:45 95 26 110/59 96 Mechanical Ventilator 30 02/24/17 07:30 96 26 117/60 97 Mechanical Ventilator 30 02/24/17 07:15 97 29 120/59 97 Mechanical Ventilator 30 02/24/17 07:00 96 25 112/61 95 Mechanical Ventilator 30 02/24/17 06:56 94 29 30 02/24/17 06:04 100/50 02/24/17 05:22 98 29 30 02/24/17 04:00 115/60 02/24/17 04:00 30 02/24/17 04:00 102 02/24/17 03:15 104 29 30 02/24/17 03:00 107/53 02/24/17 02:00 107/56 02/24/17 01:30 105 28 115/62 100 Mechanical Ventilator 30 02/24/17 01:15 101 28 30 02/24/17 01:00 101 28 109/59 100 Mechanical Ventilator 30 02/24/17 01:00 109/59 02/24/17 00:30 105 28 99/56 100 Mechanical Ventilator 30 02/24/17 00:08 79/45 02/24/17 00:00 99.0 104 28 102/43 100 Mechanical Ventilator 30 02/24/17 00:00 30 02/23/17 23:30 106 27 108/57 100 Mechanical Ventilator 30 02/23/17 23:18 96/58 02/23/17 23:13 106 29 30 02/23/17 23:00 106 27 96/58 99 Mechanical Ventilator 30 02/23/17 22:30 106 27 111/43 99 Mechanical Ventilator 30 02/23/17 22:00 105 26 102/50 99 Mechanical Ventilator 30 02/23/17 22:00 102/50 02/23/17 21:30 104 25 105/53 99 Mechanical Ventilator 30 02/23/17 21:24 108 31 30 02/23/17 21:00 110/54 02/23/17 21:00 105 25 110/54 96 Mechanical Ventilator 30 02/23/17 20:30 105 25 110/63 96 Mechanical Ventilator 30 02/23/17 20:00 98.8 99 22 92/50 93 Mechanical Ventilator 30 02/23/17 20:00 30 02/23/17 20:00 92/50 02/23/17 20:00 100 02/23/17 19:29 26 79/69 98 Endotracheal Tube 02/23/17 19:29 02/23/17 19:25 96 33 30 02/23/17 19:00 83/51 02/23/17 19:00 94 22 83/51 93 Mechanical Ventilator 30 02/23/17 18:45 94 19 84/46 94 Mechanical Ventilator 30 02/23/17 18:30 89 21 90/51 93 Mechanical Ventilator 30 02/23/17 18:15 90 24 91/50 96 Mechanical Ventilator 30 02/23/17 18:00 86 22 88/46 96 Mechanical Ventilator 30 02/23/17 18:00 88/46 02/23/17 17:45 84 18 83/45 96 Mechanical Ventilator 30 02/23/17 17:30 82 19 81/41 96 Mechanical Ventilator 30 02/23/17 17:30 30 02/23/17 17:19 82/44 02/23/17 17:15 83 19 82/44 99 Mechanical Ventilator 40 02/23/17 17:05 83 18 30 02/23/17 17:00 85 19 88/45 99 Mechanical Ventilator 40 02/23/17 17:00 88/45 02/23/17 16:45 85 16 88/44 99 Mechanical Ventilator 40 02/23/17 16:30 83 18 88/47 98 Mechanical Ventilator 40 02/23/17 16:15 83 19 89/47 99 Mechanical Ventilator 40 02/23/17 16:00 95.2 82 22 91/45 100 Mechanical Ventilator 40 02/23/17 16:00 40 02/23/17 16:00 91/45 02/23/17 15:45 81 20 97/52 99 Mechanical Ventilator 40 02/23/17 15:32 30 02/23/17 15:30 83 19 91/47 99 Mechanical Ventilator 40 02/23/17 15:25 81 20 40 02/23/17 15:15 82 18 90/44 99 Mechanical Ventilator 40 02/23/17 15:00 95/49 02/23/17 15:00 83 22 95/49 100 Mechanical Ventilator 40 02/23/17 14:45 82 21 97/52 99 Mechanical Ventilator 40 Height (Feet): 5 Height (Inches): 8.00 Weight (Pounds): 160 Objective General Appearance: no apparent distress, other - Altered, somnolent Head: normocephalic, atraumatic Eyes: bilateral eye normal inspection, bilateral eye PERRL, bilateral eye scleral icterus ENT: no angioedema Neck: normal inspection, full range of motion Respiratory: coarse BS Cardiovascular : regular rate, rhythm, no edema Gastrointestinal: normal bowel sounds, non tender, soft, no guarding, no rebound, distended Musculoskeletal: swelling - anasarca Skin: jaundice, other - anasarca Microbiology Date/Time Source Procedure Growth Status 02/23/17 17:00 Nasopharynx Influenza Types A,B Antigen (KAYKAY) - Final Complete 02/23/17 10:10 Urine,Clean Catch Urine Culture - Preliminary NO GROWTH Resulted Laboratory Tests Test 02/23/17 15:00 02/23/17 17:00 02/24/17 04:45 02/24/17 06:30 Arterial Blood pH 7.060 (7.350-7.450) 7.430 (7.350-7.450) Arterial Blood Partial Pressure CO2 44.3 mmHg (35.0-45.0) 31.2 mmHg (35.0-45.0) L Arterial Blood Partial Pressure O2 157.2 mmHg (75.0-100.0) H 85.2 mmHg (75.0-100.0) Arterial Blood HCO3 12.5 mmol/L (22.0-26.0) L 20.5 mmol/L (22.0-26.0) L Arterial Blood Oxygen Saturation 98.2 % (92.0-98.0) H 95.4 % (92.0-98.0) Arterial Blood Base Excess -17.0 -3.1 Nigel Test Positive Positive Lactic Acid Level 5.00 mmol/L (0.66-2.22) H 5.90 mmol/L (0.66-2.22) H White Blood Count 37.8 K/UL (4.8-10.8) #*H Red Blood Count 2.97 M/UL (4.70-6.10) L Hemoglobin 9.0 G/DL (14.2-18.0) L Hematocrit 27.0 % (42.0-52.0) L Mean Corpuscular Volume 94 FL (80-99) # Mean Corpuscular Hemoglobin 30.0 PG (27.0-31.0) Mean Corpuscular Hemoglobin Concent 33.0 G/DL (32.0-36.0) Red Cell Distribution Width 11.5 % (11.6-14.8) L Platelet Count 60 K/UL (150-450) L Mean Platelet Volume 8.9 FL (6.5-10.1) Neutrophils (%) (Auto) % (45.0-75.0) Lymphocytes (%) (Auto) % (20.0-45.0) Monocytes (%) (Auto) % (1.0-10.0) Eosinophils (%) (Auto) % (0.0-3.0) Basophils (%) (Auto) % (0.0-2.0) Differential Total Cells Counted 100 Neutrophils % (Manual) 93 % (45-75) H Lymphocytes % (Manual) 1 % (20-45) L Monocytes % (Manual) 6 % (1-10) Eosinophils % (Manual) 0 % (0-3) Basophils % (Manual) 0 % (0-2) Band Neutrophils 0 % (0-8) Platelet Estimate Decreased L Platelet Morphology Normal Hypochromasia 2+ Macrocytosis 1+ Sodium Level 140 MMOL/L (136-145) # Potassium Level 3.5 MMOL/L (3.5-5.1) Chloride Level 99 MMOL/L (98-107) Carbon Dioxide Level 23 MMOL/L (21-32) Anion Gap 18 mmol/L (5-15) H Blood Urea Nitrogen 94 mg/dL (7-18) #H Creatinine 6.2 MG/DL (0.55-1.30) H Estimat Glomerular Filtration Rate 9.6 mL/min (>60) Glucose Level 149 MG/DL (74-106) H Hemoglobin A1c 4.4 % (4.3-6.0) Uric Acid 9.4 MG/DL (2.6-7.2) H Calcium Level 6.1 MG/DL (8.5-10.1) L Phosphorus Level 5.8 MG/DL (2.5-4.9) H Magnesium Level 2.0 MG/DL (1.8-2.4) Total Bilirubin 19.3 MG/DL (0.2-1.0) H Direct Bilirubin 14.6 MG/DL (0.0-0.3) H Gamma Glutamyl Transpeptidase 150 U/L (5-85) H Aspartate Amino Transf (AST/SGOT) 481 U/L (15-37) H Alanine Aminotransferase (ALT/SGPT) 113 U/L (12-78) H Alkaline Phosphatase 220 U/L (46-116) H Ammonia 144 umol/L (11-32) H Total Creatine Kinase 634 U/L (26-308) H Troponin I 0.762 ng/mL (0.000-0.056) C-Reactive Protein, Quantitative 6.8 mg/dL (0.00-0.90) H Pro-B-Type Natriuretic Peptide 5660 pg/mL (0-125) H Total Protein 5.8 G/DL (6.4-8.2) L Albumin 1.5 G/DL (3.4-5.0) L Globulin 4.3 g/dL Albumin/Globulin Ratio 0.3 (1.0-2.7) L Triglycerides Level 88 MG/DL (30-150) Cholesterol Level < 50 MG/DL (< 200) LDL Cholesterol 20 mg/dL (<100) HDL Cholesterol 9 MG/DL (40-60) L Cholesterol/HDL Ratio 5.6 (3.3-4.4) H Vitamin B12 Level > 2000 PG/ML (193-986) H Random Vancomycin Level 10.8 ug/mL Test 02/24/17 08:00 Lactic Acid Level 4.80 mmol/L (0.66-2.22) H Current Medications Medications (Trade) Dose Ordered Sig/Gabby Route PRN Reason Start Time Stop Time Status Last Admin Dose Admin Acetaminophen (Tylenol) 650 mg Q4H PRN ORAL fever (temp> 100.5F) 02/23/17 11:15 03/25/17 11:14 02/24/17 08:58 Albuterol/ Ipratropium (Albuterol/ Ipratropium) 3 ml Q4H PRN HHN Shortness of Breath 02/23/17 11:15 02/28/17 11:14 Amikacin Protocol (Amikacin pharmacy to dose) 1 ea DAILY PRN MISC PER RX PROTOCOL 02/23/17 13:15 03/25/17 13:14 Dextrose/Sodium Chloride 1,000 ml @ 125 mls/hr Q8H IV 02/23/17 14:00 03/25/17 13:59 02/24/17 06:04 Heparin Sodium (Porcine) (Heparin 5000 units/ml) 5,000 units EVERY 12 HOURS SUBQ 02/23/17 21:00 03/25/17 20:59 Hydrocortisone (Solu-CORTEF) 100 mg EVERY 8 HOURS IV 02/23/17 22:00 03/25/17 21:59 02/24/17 06:04 Lactulose (Cephulac) 30 gm EVERY 6 HOURS NG 02/24/17 12:00 03/26/17 11:59 02/24/17 11:14 Meropenem 500 mg/ Sodium Chloride 55 ml @ 110 mls/hr Q24H IVPB 02/24/17 11:00 03/01/17 10:59 02/24/17 11:14 Norepinephrine Bitartrate 8 mg/ Dextrose 254 ml @ 0 mls/hr Q24H IV 02/23/17 17:01 03/25/17 17:00 02/24/17 06:04 Ondansetron HCl (Zofran) 4 mg Q6H PRN IVP Nausea & Vomiting 02/23/17 11:15 03/25/17 11:14 Pantoprazole (Protonix) 40 mg DAILY IVP 02/24/17 12:00 03/26/17 11:59 02/24/17 11:14 Vancomycin HCl (Vanco rx to dose) 1 ea DAILY PRN MISC PER RX PROTOCOL 02/23/17 13:15 03/25/17 13:14 Jolie Coleman M.D. Feb 24, 2017 14:48
--- NOTE | 2017-02-24 15:35 | Cardiology Progress Note ---
Assessment/Plan Assessment/Plan afr cirrhosis leukemoid reaction sbp? pulm htn etohism doubt chf normal systolic and diastolic function avoid syd and chf medication jacob bx vent support check protime [id number] Objective Last 24 Hour Vital Signs Date Time Temp Pulse Resp B/P (MAP) Pulse Ox O2 Delivery O2 Flow Rate FiO2 02/24/17 15:08 82 55 30 02/24/17 13:02 86 24 30 02/24/17 12:00 85 02/24/17 12:00 30 02/24/17 12:00 86 23 119/63 97 Mechanical Ventilator 30 02/24/17 11:45 86 23 113/57 97 Mechanical Ventilator 30 02/24/17 11:30 86 23 117/61 97 Mechanical Ventilator 30 02/24/17 11:15 86 23 110/59 97 Mechanical Ventilator 30 02/24/17 11:00 87 23 102/54 97 Mechanical Ventilator 30 02/24/17 10:45 88 24 120/62 97 Mechanical Ventilator 30 02/24/17 10:31 89 25 30 02/24/17 10:30 88 25 114/64 97 Mechanical Ventilator 30 02/24/17 10:15 89 24 117/67 98 Mechanical Ventilator 30 02/24/17 10:00 89 25 123/65 97 Mechanical Ventilator 30 02/24/17 10:00 98.7 02/24/17 09:45 90 27 114/59 98 Mechanical Ventilator 30 02/24/17 09:30 91 29 122/65 97 Mechanical Ventilator 30 02/24/17 09:15 91 25 123/67 97 Mechanical Ventilator 30 02/24/17 09:00 91 26 123/67 97 Mechanical Ventilator 30 02/24/17 08:48 92 29 30 02/24/17 08:45 92 27 117/64 97 Mechanical Ventilator 30 02/24/17 08:30 93 25 115/62 97 Mechanical Ventilator 30 02/24/17 08:15 91 27 112/61 96 Mechanical Ventilator 30 02/24/17 08:00 30 02/24/17 08:00 96 02/24/17 08:00 101.0 93 26 107/57 95 Mechanical Ventilator 30 02/24/17 08:00 110/59 02/24/17 07:45 95 26 110/59 96 Mechanical Ventilator 30 02/24/17 07:30 96 26 117/60 97 Mechanical Ventilator 30 1/12/18 07:15 97 29 120/59 97 Mechanical Ventilator 30 02/24/17 07:00 96 25 112/61 95 Mechanical Ventilator 30 02/24/17 06:56 94 29 30 02/24/17 06:04 100/50 02/24/17 05:22 98 29 30 02/24/17 04:00 115/60 02/24/17 04:00 30 02/24/17 04:00 102 02/24/17 03:15 104 29 30 02/24/17 03:00 107/53 02/24/17 02:00 107/56 02/24/17 01:30 105 28 115/62 100 Mechanical Ventilator 30 02/24/17 01:15 101 28 30 02/24/17 01:00 101 28 109/59 100 Mechanical Ventilator 30 02/24/17 01:00 109/59 02/24/17 00:30 105 28 99/56 100 Mechanical Ventilator 30 02/24/17 00:08 79/45 02/24/17 00:00 99.0 104 28 102/43 100 Mechanical Ventilator 30 02/24/17 00:00 30 02/23/17 23:30 106 27 108/57 100 Mechanical Ventilator 30 02/23/17 23:18 96/58 02/23/17 23:13 106 29 30 02/23/17 23:00 106 27 96/58 99 Mechanical Ventilator 30 02/23/17 22:30 106 27 111/43 99 Mechanical Ventilator 30 02/23/17 22:00 105 26 102/50 99 Mechanical Ventilator 30 02/23/17 22:00 102/50 02/23/17 21:30 104 25 105/53 99 Mechanical Ventilator 30 02/23/17 21:24 108 31 30 02/23/17 21:00 110/54 02/23/17 21:00 105 25 110/54 96 Mechanical Ventilator 30 02/23/17 20:30 105 25 110/63 96 Mechanical Ventilator 30 02/23/17 20:00 98.8 99 22 92/50 93 Mechanical Ventilator 30 02/23/17 20:00 30 02/23/17 20:00 92/50 02/23/17 20:00 100 02/23/17 19:29 26 79/69 98 Endotracheal Tube 02/23/17 19:29 02/23/17 19:25 96 33 30 02/23/17 19:00 83/51 02/23/17 19:00 94 22 83/51 93 Mechanical Ventilator 30 02/23/17 18:45 94 19 84/46 94 Mechanical Ventilator 30 02/23/17 18:30 89 21 90/51 93 Mechanical Ventilator 30 02/23/17 18:15 90 24 91/50 96 Mechanical Ventilator 30 02/23/17 18:00 86 22 88/46 96 Mechanical Ventilator 30 02/23/17 18:00 88/46 02/23/17 17:45 84 18 83/45 96 Mechanical Ventilator 30 02/23/17 17:30 82 19 81/41 96 Mechanical Ventilator 30 02/23/17 17:30 30 02/23/17 17:19 82/44 02/23/17 17:15 83 19 82/44 99 Mechanical Ventilator 40 02/23/17 17:05 83 18 30 02/23/17 17:00 85 19 88/45 99 Mechanical Ventilator 40 02/23/17 17:00 88/45 02/23/17 16:45 85 16 88/44 99 Mechanical Ventilator 40 02/23/17 16:30 83 18 88/47 98 Mechanical Ventilator 40 02/23/17 16:15 83 19 89/47 99 Mechanical Ventilator 40 02/23/17 16:00 95.2 82 22 91/45 100 Mechanical Ventilator 40 02/23/17 16:00 40 02/23/17 16:00 91/45 02/23/17 15:45 81 20 97/52 99 Mechanical Ventilator 40 Intake and Output 02/23/17 02/24/17 19:00 07:00 Intake Total 2524.41 ml 1483.14 ml Output Total 315 ml 0 ml Balance 2209.41 ml 1483.14 ml Intake IV Total 2524.41 ml 1483.14 ml Output Urine Total 65 ml 0 ml Gastric Drainage Total 250 ml # Bowel Movements 1 Laboratory Tests Test 02/23/17 17:00 02/24/17 04:45 02/24/17 06:30 02/24/17 08:00 Lactic Acid Level 5.00 mmol/L (0.66-2.22) H 5.90 mmol/L (0.66-2.22) H 4.80 mmol/L (0.66-2.22) H White Blood Count 37.8 K/UL (4.8-10.8) #*H Red Blood Count 2.97 M/UL (4.70-6.10) L Hemoglobin 9.0 G/DL (14.2-18.0) L Hematocrit 27.0 % (42.0-52.0) L Mean Corpuscular Volume 94 FL (80-99) # Mean Corpuscular Hemoglobin 30.0 PG (27.0-31.0) Mean Corpuscular Hemoglobin Concent 33.0 G/DL (32.0-36.0) Red Cell Distribution Width 11.5 % (11.6-14.8) L Platelet Count 60 K/UL (150-450) L Mean Platelet Volume 8.9 FL (6.5-10.1) Neutrophils (%) (Auto) % (45.0-75.0) Lymphocytes (%) (Auto) % (20.0-45.0) Monocytes (%) (Auto) % (1.0-10.0) Eosinophils (%) (Auto) % (0.0-3.0) Basophils (%) (Auto) % (0.0-2.0) Differential Total Cells Counted 100 Neutrophils % (Manual) 93 % (45-75) H Lymphocytes % (Manual) 1 % (20-45) L Monocytes % (Manual) 6 % (1-10) Eosinophils % (Manual) 0 % (0-3) Basophils % (Manual) 0 % (0-2) Band Neutrophils 0 % (0-8) Platelet Estimate Decreased L Platelet Morphology Normal Hypochromasia 2+ Macrocytosis 1+ Sodium Level 140 MMOL/L (136-145) # Potassium Level 3.5 MMOL/L (3.5-5.1) Chloride Level 99 MMOL/L (98-107) Carbon Dioxide Level 23 MMOL/L (21-32) Anion Gap 18 mmol/L (5-15) H Blood Urea Nitrogen 94 mg/dL (7-18) #H Creatinine 6.2 MG/DL (0.55-1.30) H Estimat Glomerular Filtration Rate 9.6 mL/min (>60) Glucose Level 149 MG/DL (74-106) H Hemoglobin A1c 4.4 % (4.3-6.0) Uric Acid 9.4 MG/DL (2.6-7.2) H Calcium Level 6.1 MG/DL (8.5-10.1) L Phosphorus Level 5.8 MG/DL (2.5-4.9) H Magnesium Level 2.0 MG/DL (1.8-2.4) Total Bilirubin 19.3 MG/DL (0.2-1.0) H Direct Bilirubin 14.6 MG/DL (0.0-0.3) H Gamma Glutamyl Transpeptidase 150 U/L (5-85) H Aspartate Amino Transf (AST/SGOT) 481 U/L (15-37) H Alanine Aminotransferase (ALT/SGPT) 113 U/L (12-78) H Alkaline Phosphatase 220 U/L (46-116) H Ammonia 144 umol/L (11-32) H Total Creatine Kinase 634 U/L (26-308) H Troponin I 0.762 ng/mL (0.000-0.056) C-Reactive Protein, Quantitative 6.8 mg/dL (0.00-0.90) H Pro-B-Type Natriuretic Peptide 5660 pg/mL (0-125) H Total Protein 5.8 G/DL (6.4-8.2) L Albumin 1.5 G/DL (3.4-5.0) L Globulin 4.3 g/dL Albumin/Globulin Ratio 0.3 (1.0-2.7) L Triglycerides Level 88 MG/DL (30-150) Cholesterol Level < 50 MG/DL (< 200) LDL Cholesterol 20 mg/dL (<100) HDL Cholesterol 9 MG/DL (40-60) L Cholesterol/HDL Ratio 5.6 (3.3-4.4) H Vitamin B12 Level > 2000 PG/ML (193-986) H Random Vancomycin Level 10.8 ug/mL Arterial Blood pH 7.430 (7.350-7.450) Arterial Blood Partial Pressure CO2 31.2 mmHg (35.0-45.0) L Arterial Blood Partial Pressure O2 85.2 mmHg (75.0-100.0) Arterial Blood HCO3 20.5 mmol/L (22.0-26.0) L Arterial Blood Oxygen Saturation 95.4 % (92.0-98.0) Arterial Blood Base Excess -3.1 Nigel Test Positive Microbiology Date/Time Source Procedure Growth Status 02/23/17 17:00 Nasopharynx Influenza Types A,B Antigen (KAYKAY) - Final Complete 02/23/17 10:10 Urine,Clean Catch Urine Culture - Preliminary NO GROWTH Resulted ISAAC RODRIGUES Feb 24, 2017 15:35
--- NOTE | 2017-02-24 16:35 | Nephrology Progress Note ---
Assessment/Plan Problem List: (1) Septic shock (2) Renal failure (3) Lactic acidosis (4) Multiorgan failure Assessment Renal failure acute Sepsis, Shock Hypoglycemia Hyponatremia Hepatic encephalopathy Elevated troponin Lactic acidosis Respiratory failure on vent Plan Poor prognosis molina hydrate dialysis attempt? done 02/23 repeat in am fluid challenge pressors steroids Subjective ROS Limited/Unobtainable: Yes Objective Objective Last 24 Hour Vital Signs Date Time Temp Pulse Resp B/P (MAP) Pulse Ox O2 Delivery O2 Flow Rate FiO2 02/24/17 16:00 99.8 84 20 110/65 99 Mechanical Ventilator 30 02/24/17 16:00 85 02/24/17 16:00 30 02/24/17 15:30 85 21 111/69 98 Mechanical Ventilator 30 02/24/17 15:08 82 55 30 02/24/17 15:00 84 21 118/66 98 Mechanical Ventilator 30 02/24/17 14:30 85 20 112/67 97 Mechanical Ventilator 30 02/24/17 14:00 86 23 108/66 97 Mechanical Ventilator 30 02/24/17 13:30 84 23 114/62 97 Mechanical Ventilator 30 02/24/17 13:02 86 24 30 02/24/17 13:00 85 22 110/62 97 Mechanical Ventilator 30 02/24/17 12:30 85 23 115/62 97 Mechanical Ventilator 30 02/24/17 12:00 85 02/24/17 12:00 30 02/24/17 12:00 86 23 119/63 97 Mechanical Ventilator 30 02/24/17 11:45 86 23 113/57 97 Mechanical Ventilator 30 02/24/17 11:30 86 23 117/61 97 Mechanical Ventilator 30 02/24/17 11:15 86 23 110/59 97 Mechanical Ventilator 30 02/24/17 11:00 87 23 102/54 97 Mechanical Ventilator 30 02/24/17 10:45 88 24 120/62 97 Mechanical Ventilator 30 02/24/17 10:31 89 25 30 02/24/17 10:30 88 25 114/64 97 Mechanical Ventilator 30 02/24/17 10:15 89 24 117/67 98 Mechanical Ventilator 30 02/24/17 10:00 89 25 123/65 97 Mechanical Ventilator 30 02/24/17 10:00 98.7 02/24/17 09:45 90 27 114/59 98 Mechanical Ventilator 30 02/24/17 09:30 91 29 122/65 97 Mechanical Ventilator 30 02/24/17 09:15 91 25 123/67 97 Mechanical Ventilator 30 02/24/17 09:00 91 26 123/67 97 Mechanical Ventilator 30 02/24/17 08:48 92 29 30 02/24/17 08:45 92 27 117/64 97 Mechanical Ventilator 30 02/24/17 08:30 93 25 115/62 97 Mechanical Ventilator 30 02/24/17 08:15 91 27 112/61 96 Mechanical Ventilator 30 02/24/17 08:00 30 02/24/17 08:00 96 02/24/17 08:00 101.0 93 26 107/57 95 Mechanical Ventilator 30 02/24/17 08:00 110/59 02/24/17 07:45 95 26 110/59 96 Mechanical Ventilator 30 02/24/17 07:30 96 26 117/60 97 Mechanical Ventilator 30 02/24/17 07:15 97 29 120/59 97 Mechanical Ventilator 30 02/24/17 07:00 96 25 112/61 95 Mechanical Ventilator 30 02/24/17 06:56 94 29 30 02/24/17 06:04 100/50 02/24/17 05:22 98 29 30 02/24/17 04:00 115/60 02/24/17 04:00 30 02/24/17 04:00 102 02/24/17 03:15 104 29 30 02/24/17 03:00 107/53 02/24/17 02:00 107/56 02/24/17 01:30 105 28 115/62 100 Mechanical Ventilator 30 02/24/17 01:15 101 28 30 02/24/17 01:00 101 28 109/59 100 Mechanical Ventilator 30 02/24/17 01:00 109/59 02/24/17 00:30 105 28 99/56 100 Mechanical Ventilator 30 02/24/17 00:08 79/45 02/24/17 00:00 99.0 104 28 102/43 100 Mechanical Ventilator 30 02/24/17 00:00 30 02/23/17 23:30 106 27 108/57 100 Mechanical Ventilator 30 02/23/17 23:18 96/58 02/23/17 23:13 106 29 30 02/23/17 23:00 106 27 96/58 99 Mechanical Ventilator 30 02/23/17 22:30 106 27 111/43 99 Mechanical Ventilator 30 02/23/17 22:00 105 26 102/50 99 Mechanical Ventilator 30 02/23/17 22:00 102/50 02/23/17 21:30 104 25 105/53 99 Mechanical Ventilator 30 02/23/17 21:24 108 31 30 02/23/17 21:00 110/54 02/23/17 21:00 105 25 110/54 96 Mechanical Ventilator 30 02/23/17 20:30 105 25 110/63 96 Mechanical Ventilator 30 02/23/17 20:00 98.8 99 22 92/50 93 Mechanical Ventilator 30 02/23/17 20:00 30 02/23/17 20:00 92/50 02/23/17 20:00 100 02/23/17 19:29 26 79/69 98 Endotracheal Tube 02/23/17 19:29 02/23/17 19:25 96 33 30 02/23/17 19:00 83/51 02/23/17 19:00 94 22 83/51 93 Mechanical Ventilator 30 02/23/17 18:45 94 19 84/46 94 Mechanical Ventilator 30 02/23/17 18:30 89 21 90/51 93 Mechanical Ventilator 30 02/23/17 18:15 90 24 91/50 96 Mechanical Ventilator 30 02/23/17 18:00 86 22 88/46 96 Mechanical Ventilator 30 02/23/17 18:00 88/46 02/23/17 17:45 84 18 83/45 96 Mechanical Ventilator 30 02/23/17 17:30 82 19 81/41 96 Mechanical Ventilator 30 02/23/17 17:30 30 02/23/17 17:19 82/44 02/23/17 17:15 83 19 82/44 99 Mechanical Ventilator 40 02/23/17 17:05 83 18 30 02/23/17 17:00 85 19 88/45 99 Mechanical Ventilator 40 02/23/17 17:00 88/45 02/23/17 16:45 85 16 88/44 99 Mechanical Ventilator 40 Intake and Output 02/23/17 02/24/17 19:00 07:00 Intake Total 2524.41 ml 1483.14 ml Output Total 315 ml 0 ml Balance 2209.41 ml 1483.14 ml Intake IV Total 2524.41 ml 1483.14 ml Output Urine Total 65 ml 0 ml Gastric Drainage Total 250 ml # Bowel Movements 1 Laboratory Tests 02/23/17 17:00: Lactic Acid Level 5.00H 02/24/17 04:45: Lactic Acid Level 5.90H, White Blood Count 37.8#*H, Red Blood Count 2.97L, Hemoglobin 9.0L, Hematocrit 27.0L, Mean Corpuscular Volume 94#, Mean Corpuscular Hemoglobin 30.0, Mean Corpuscular Hemoglobin Concent 33.0, Red Cell Distribution Width 11.5L, Platelet Count 60L, Mean Platelet Volume 8.9, Neutrophils (%) (Auto) , Lymphocytes (%) (Auto) , Monocytes (%) (Auto) , Eosinophils (%) (Auto) , Basophils (%) (Auto) , Differential Total Cells Counted 100, Neutrophils % (Manual) 93H, Lymphocytes % (Manual) 1L, Monocytes % (Manual) 6, Eosinophils % (Manual) 0, Basophils % (Manual) 0, Band Neutrophils 0 , Platelet Estimate DecreasedL, Platelet Morphology Normal, Hypochromasia 2+, Macrocytosis 1+, Sodium Level 140#, Potassium Level 3.5, Chloride Level 99, Carbon Dioxide Level 23, Anion Gap 18H, Blood Urea Nitrogen 94#H, Creatinine 6.2H, Estimat Glomerular Filtration Rate 9.6, Glucose Level 149H, Hemoglobin A1c 4.4, Uric Acid 9.4H, Calcium Level 6.1L, Phosphorus Level 5.8H, Magnesium Level 2.0, Total Bilirubin 19.3H, Direct Bilirubin 14.6H, Gamma Glutamyl Transpeptidase 150H, Aspartate Amino Transf (AST/SGOT) 481H, Alanine Aminotransferase (ALT/SGPT) 113H, Alkaline Phosphatase 220H, Ammonia 144H, Total Creatine Kinase 634H, Troponin I 0.762H, C-Reactive Protein, Quantitative 6.8H, Pro-B-Type Natriuretic Peptide 5660H, Total Protein 5.8L, Albumin 1.5L, Globulin 4.3, Albumin/Globulin Ratio 0.3L, Triglycerides Level 88, Cholesterol Level < 50, LDL Cholesterol 20, HDL Cholesterol 9L, Cholesterol/HDL Ratio 5.6H, Vitamin B12 Level > 2000H, Random Vancomycin Level 10.8 02/24/17 06:30: Arterial Blood pH 7.430, Arterial Blood Partial Pressure CO2 31.2L, Arterial Blood Partial Pressure O2 85.2, Arterial Blood HCO3 20.5L, Arterial Blood Oxygen Saturation 95.4, Arterial Blood Base Excess -3.1, Nigel Test Positive 02/24/17 08:00: Lactic Acid Level 4.80H Height (Feet): 5 Height (Inches): 8.00 Weight (Pounds): 160 General Appearance: no apparent distress, other - jaundiced EENT: other - intubated Respiratory/Chest: decreased breath sounds Abdomen: distended Neurologic: other - encephalopathic JORDON PRETTY Feb 24, 2017 16:35
[2017-02-24] MEDS ORDERED: Micafungin 100 MG in NS 110 ML IVPB SCH (17:00)
[2017-02-24] MEDS: Lactulose 20gm/30ml UDC NG SCH (17:29)
--- NOTE | 2017-02-24 17:32 | Diagnostic Imaging Report ---
Indication: Dyspnea Technique: XRAY Chest 1v Comparison: 02/23/2017 Findings: Endotracheal tube tip 2.4 cm above the shaunna. NG tube has been removed. Central venous catheter unchanged in position. Lung volumes are low. Heart size and mediastinal contours are stable. There is slight interval worsening of interstitial opacification/edema, finding which may be exaggerated due to lower lung volumes. No pneumothorax. Impression: Interval removal of NG tube. Apparent worsening of interstitial opacification/edema, finding which may be exaggerated due to lower lung volumes.
--- NOTE | 2017-02-24 19:30 | Internal Med Progress Note ---
Subjective Date of Service: Feb 24, 2017 Physician Name SinghChu toribio Attending Physician Raz Zuniga MD Current Medications Medications (Trade) Dose Ordered Sig/Gabby Route PRN Reason Start Time Stop Time Status Last Admin Dose Admin Acetaminophen (Tylenol) 650 mg Q4H PRN ORAL fever (temp> 100.5F) 02/23/17 11:15 03/25/17 11:14 02/24/17 17:30 Albuterol/ Ipratropium (Albuterol/ Ipratropium) 3 ml Q4H PRN HHN Shortness of Breath 02/23/17 11:15 02/28/17 11:14 Amikacin Protocol (Amikacin pharmacy to dose) 1 ea DAILY PRN MISC PER RX PROTOCOL 02/23/17 13:15 03/25/17 13:14 Dextrose/Sodium Chloride 1,000 ml @ 125 mls/hr Q8H IV 02/23/17 14:00 03/25/17 13:59 02/24/17 14:00 Heparin Sodium (Porcine) (Heparin 5000 units/ml) 5,000 units EVERY 12 HOURS SUBQ 02/23/17 21:00 03/25/17 20:59 Hydrocortisone (Solu-CORTEF) 100 mg EVERY 8 HOURS IV 02/23/17 22:00 03/25/17 21:59 02/24/17 14:00 Lactulose (Cephulac) 20 gm EVERY 6 HOURS NG 02/24/17 18:00 03/26/17 17:59 02/24/17 17:29 Meropenem 500 mg/ Sodium Chloride 55 ml @ 110 mls/hr Q24H IVPB 02/24/17 11:00 03/01/17 10:59 02/24/17 11:14 Micafungin Sodium 100 mg/Sodium Chloride 110 ml @ 110 mls/hr Q24H IVPB 02/24/17 17:00 03/03/17 16:59 02/24/17 17:29 Norepinephrine Bitartrate 8 mg/ Dextrose 254 ml @ 0 mls/hr Q24H IV 02/23/17 17:01 03/25/17 17:00 02/24/17 06:04 Ondansetron HCl (Zofran) 4 mg Q6H PRN IVP Nausea & Vomiting 02/23/17 11:15 03/25/17 11:14 Pantoprazole (Protonix) 40 mg DAILY IVP 02/24/17 12:00 03/26/17 11:59 02/24/17 11:14 Vancomycin HCl (Vanco rx to dose) 1 ea DAILY PRN MISC PER RX PROTOCOL 02/23/17 13:15 03/25/17 13:14 Allergies: Coded Allergies: No Known Allergies (Verified , 02/27/11) ROS Limited/Unobtainable: Yes Subjective 51 YO M admitted with altered mental status. Now Respiratory failure. Cover for Int Med-Dr Zuniga. ICU. Intubated and sedated Objective Last Vital Signs Date Time Temp Pulse Resp B/P (MAP) Pulse Ox O2 Delivery O2 Flow Rate FiO2 02/24/17 18:55 99.6 02/24/17 18:51 88 26 30 02/24/17 18:30 107/67 98 Mechanical Ventilator General Appearance: WD/WN, lethargic EENT: PERRL/EOMI, normal ENT inspection Neck: non-tender, normal alignment, supple, normal inspection Cardiovascular: normal peripheral pulses, normal rate, regular rhythm, no gallop/murmur, no JVD Respiratory/Chest: no accessory muscle use, respiratory distress, crackles/ rales, rhonchi - bilaterally, expiratory wheezing Abdomen: normal bowel sounds, non tender, soft, no organomegaly, no mass Extremities: normal range of motion Skin: normal pigmentation, warm/dry Laboratory Tests Test 02/24/17 04:45 02/24/17 06:30 02/24/17 08:00 White Blood Count 37.8 K/UL (4.8-10.8) #*H Red Blood Count 2.97 M/UL (4.70-6.10) L Hemoglobin 9.0 G/DL (14.2-18.0) L Hematocrit 27.0 % (42.0-52.0) L Mean Corpuscular Volume 94 FL (80-99) # Mean Corpuscular Hemoglobin 30.0 PG (27.0-31.0) Mean Corpuscular Hemoglobin Concent 33.0 G/DL (32.0-36.0) Red Cell Distribution Width 11.5 % (11.6-14.8) L Platelet Count 60 K/UL (150-450) L Mean Platelet Volume 8.9 FL (6.5-10.1) Neutrophils (%) (Auto) % (45.0-75.0) Lymphocytes (%) (Auto) % (20.0-45.0) Monocytes (%) (Auto) % (1.0-10.0) Eosinophils (%) (Auto) % (0.0-3.0) Basophils (%) (Auto) % (0.0-2.0) Differential Total Cells Counted 100 Neutrophils % (Manual) 93 % (45-75) H Lymphocytes % (Manual) 1 % (20-45) L Monocytes % (Manual) 6 % (1-10) Eosinophils % (Manual) 0 % (0-3) Basophils % (Manual) 0 % (0-2) Band Neutrophils 0 % (0-8) Platelet Estimate Decreased L Platelet Morphology Normal Hypochromasia 2+ Macrocytosis 1+ Sodium Level 140 MMOL/L (136-145) # Potassium Level 3.5 MMOL/L (3.5-5.1) Chloride Level 99 MMOL/L (98-107) Carbon Dioxide Level 23 MMOL/L (21-32) Anion Gap 18 mmol/L (5-15) H Blood Urea Nitrogen 94 mg/dL (7-18) #H Creatinine 6.2 MG/DL (0.55-1.30) H Estimat Glomerular Filtration Rate 9.6 mL/min (>60) Glucose Level 149 MG/DL (74-106) H Hemoglobin A1c 4.4 % (4.3-6.0) Lactic Acid Level 5.90 mmol/L (0.66-2.22) H 4.80 mmol/L (0.66-2.22) H Uric Acid 9.4 MG/DL (2.6-7.2) H Calcium Level 6.1 MG/DL (8.5-10.1) L Phosphorus Level 5.8 MG/DL (2.5-4.9) H Magnesium Level 2.0 MG/DL (1.8-2.4) Total Bilirubin 19.3 MG/DL (0.2-1.0) H Direct Bilirubin 14.6 MG/DL (0.0-0.3) H Gamma Glutamyl Transpeptidase 150 U/L (5-85) H Aspartate Amino Transf (AST/SGOT) 481 U/L (15-37) H Alanine Aminotransferase (ALT/SGPT) 113 U/L (12-78) H Alkaline Phosphatase 220 U/L (46-116) H Ammonia 144 umol/L (11-32) H Total Creatine Kinase 634 U/L (26-308) H Troponin I 0.762 ng/mL (0.000-0.056) C-Reactive Protein, Quantitative 6.8 mg/dL (0.00-0.90) H Pro-B-Type Natriuretic Peptide 5660 pg/mL (0-125) H Total Protein 5.8 G/DL (6.4-8.2) L Albumin 1.5 G/DL (3.4-5.0) L Globulin 4.3 g/dL Albumin/Globulin Ratio 0.3 (1.0-2.7) L Triglycerides Level 88 MG/DL (30-150) Cholesterol Level < 50 MG/DL (< 200) LDL Cholesterol 20 mg/dL (<100) HDL Cholesterol 9 MG/DL (40-60) L Cholesterol/HDL Ratio 5.6 (3.3-4.4) H Vitamin B12 Level > 2000 PG/ML (193-986) H Random Vancomycin Level 10.8 ug/mL Arterial Blood pH 7.430 (7.350-7.450) Arterial Blood Partial Pressure CO2 31.2 mmHg (35.0-45.0) L Arterial Blood Partial Pressure O2 85.2 mmHg (75.0-100.0) Arterial Blood HCO3 20.5 mmol/L (22.0-26.0) L Arterial Blood Oxygen Saturation 95.4 % (92.0-98.0) Arterial Blood Base Excess -3.1 Nigel Test Positive Microbiology Date/Time Source Procedure Growth Status 02/23/17 17:00 Nasopharynx Influenza Types A,B Antigen (KAYKAY) - Final Complete 02/23/17 10:10 Urine,Clean Catch Urine Culture - Preliminary NO GROWTH Resulted Intake and Output 02/23/17 02/24/17 19:00 07:00 Intake Total 2524.41 ml 1483.14 ml Output Total 315 ml 0 ml Balance 2209.41 ml 1483.14 ml Intake IV Total 2524.41 ml 1483.14 ml Output Urine Total 65 ml 0 ml Gastric Drainage Total 250 ml # Bowel Movements 1 Assessment/Plan Problem List: (1) Alcohol dependence (2) Cirrhosis of liver (3) Elevated liver enzymes (4) Altered mental status Assessment & Plan: ?due to liver cirrhosis? continue lactulose (5) Respiratory failure Assessment & Plan: Cont mech vent per pulmonary (6) Sepsis Assessment & Plan: See ID note. Continue vanco, meropenem, amikacin and micafungin. Await culture results. (7) Septic shock (8) CHF (congestive heart failure) (9) Renal failure Assessment & Plan: See nephrology note. Status: not improved CHU SINGH Feb 24, 2017 19:30
--- NOTE | 2017-02-24 22:30 | Consultation ---
DATE OF CONSULTATION: 02/24/2017 CARDIAC CONSULTATION. CONSULTING PHYSICIAN: James Mendieta M.D. REFERRING PHYSICIAN: Myra Mi M.D. REASON FOR REFERRAL: Congestive heart failure. HISTORY OF PRESENT ILLNESS: This is an unfortunate middle-aged gentleman who is alcoholic who was recently hospitalized and subsequently discharged from [facility]. Information is obtained from my discussion with the patient's family members and from the review of some of the records that are available here at [facility]. It appears that the patient was hospitalized at [facility] initially because of bilateral lower extremity swelling, progressive and painfully tight, no open lesions, fevers, redness, jaundice was noted. Urine was dark in color. Abdomen was feeling firm and tight but not tender and no vomiting but positive nausea, no black or bloody stools. Eventually basically found him to have alcoholic liver disease with cirrhosis with jaundice and hyperbilirubinemia, gastrointestinal bleeding, initial being suspected the patient was treated with octreotide and Protonix eventually that was discontinued, they diagnosed him with congestive heart failure and lower extremity edema as well. He had some thoracentesis and physical therapy eventually, SNF was recommended. Family decided to take him home and he was at home for few days not doing well, more confused, not eating and eventually started not taking his medications and eventually the family members brought him to the emergency room at [facility]. They noted him to breathe more rapidly, was not really having any fevers, no vomiting, ate liquid diet initially but very rarely softer foods or harder foods. There are no reports of vomiting. His stools were rather black. PAST MEDICAL HISTORY: Positive for history of alcohol abuse, history of jaundice, questionable history of upper gastrointestinal bleed, ascites status post paracentesis, cirrhosis of the liver secondary to alcohol and diastolic heart failure as was diagnosed. He is not allergic to any medications. SOCIAL HISTORY: He does not smoke. He used to drink until month ago. No drug use. REVIEW OF SYSTEMS: Unable to obtain. PHYSICAL EXAMINATION: GENERAL: Shows to be middle-aged gentleman, on a mechanical ventilator, not communicative or responsive. NECK: Supple. No jugular venous distention. LUNGS: Clear to auscultation and percussion. CARDIOVASCULAR: S1 is normal. S2 is normal. Regular rate and rhythm. No heaves, thrills, gallops, or rubs are noted. ABDOMEN: Distended. No guarding. No rigidity. EXTREMITIES: Edema of the lower extremities some mild degree is noted. NEUROLOGICAL: He is on a ventilator at this time. LABORATORY AND DIAGNOSTIC DATA: White count of 37.8 with hemoglobin 9 and platelet count of 60,000 down from 108,000. A pH is 7.43, pCO2 of 31, pO2 85, of bicarbonate of 20. Yesterday pH is 7.06, pCO2 44, pO2 of 157, bicarbonate of 12. His sodium 140, potassium 3.5, chloride 99, bicarbonate of 23, BUN of 94 creatinine 6.2, and glucose of 149. Bilirubin of 19 with direct of 14.6, AST of 481, ALT of 139, alkaline phosphatase of 220. Albumin of 2.5. No coags available. Urinalysis 5 to 10 RBCs, 2 to 4 WBCs, 4+ urobilinogen, 1+ leukocyte esterase. Electrocardiogram showed sinus rhythm with no significant ST-T wave abnormalities, some prolongation of QT maybe evidence, however not for the heart rate. The ejection fraction of 65% to 70% on preliminary report, pleural effusion is noted, some thickening of the mitral valve, no significant valvular deficits, peak gradient 35, mean gradient 17, aortic valve area and normal left ventricular diastolic function and PA pressure is 51. ASSESSMENT: 1. Cirrhosis. 2. Ascites. 3. Leukemoid reaction. 4. Edema and ascites secondary to liver disease. 5. Alcoholic dependence. 6. Acute renal failure. 7. Pulmonary hypertension. This patient was seen in cardiac consultation. Of note, the patient's data from [facility] has been reviewed previously, he has BUN creatinine 6.0. He has developed some acute renal failure as mentioned above. The hepatorenal syndrome needs to be entertained in this is the situation, ejection fraction was normal. There is no diastolic dysfunction although he does have some element of pulmonary hypertension. He also has some metabolic acidosis secondary probably to renal failure, not sure how a candidate with cirrhosis for renal therapy. I doubt that he has congestive heart failure. His examination is not suggestive of such. I suspect that most of his problem with his respiratory issue is likely related to his effusion secondary to cirrhosis. In light of that, I do not favor administration of any ANTOINETTE inhibitors or beta-blockers at this time for heart failure. He is quite risk of sepsis and requires antibiotics; therefore, we would avoid medications that would decreased blood pressure. James Mendieta M.D. DR: Kat JOB#: [id number] CC:
[2017-02-25] VITALS (16 sets, daily range): BP systolic 91–120; BP diastolic 51–63
[2017-02-25] MEDS: Lactulose 20gm/30ml UDC NG SCH ×2 (00:30→06:01)
[2017-02-25] MEDS: D5NS 1,000 ML IV SCH (06:01)
[2017-02-25] MEDS: Hydrocortisone 100mg Inj IV SCH (06:01)
[2017-02-25 06:11] LABS: HEMATOCRIT 26.8 % (42.0-52.0); HEMOGLOBIN 9.7 G/DL (14.2-18.0); MEAN CORPUSCULAR VOLUME 107 FL (80-99); PLATELET COUNT 28 K/UL (150-450); RED BLOOD COUNT 2.51 M/UL (4.70-6.10); RED CELL DISTRIBUTION WIDTH 11.3 % (11.6-14.8)
[2017-02-25 06:20] LABS: WHITE BLOOD COUNT 28.9 K/UL (4.8-10.8)
[2017-02-25 06:59] LABS: ALANINE AMINOTRANSFERASE 106 U/L (12-78); ALBUMIN 1.2 G/DL (3.4-5.0); ALBUMIN/GLOBULIN RATIO 0.2 (1.0-2.7); ALKALINE PHOSPHATASE 219 U/L (46-116); ANION GAP 19 mmol/L (5-15); ASPARTATE AMINO TRANSFERASE 256 U/L (15-37); BILIRUBIN,TOTAL 17.1 MG/DL (0.2-1.0); BLOOD UREA NITROGEN 100 mg/dL (7-18); CALCIUM 6.4 MG/DL (8.5-10.1); CARBON DIOXIDE 20 MMOL/L (21-32); CHLORIDE 102 MMOL/L (98-107); CREATININE 6.9 MG/DL (0.55-1.30); PHOSPHORUS 6.3 MG/DL (2.5-4.9); POTASSIUM 2.9 MMOL/L (3.5-5.1); SODIUM 140 MMOL/L (136-145)
[2017-02-25 07:13] LABS: BILIRUBIN,DIRECT 13.2 MG/DL (0.0-0.3)
--- NOTE | 2017-02-25 07:48 | Pulmonolgy Critical Care Note ---
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 Discussed with: nurses, consultants, watch case polisher, family member - we will have family meeting to decide about plan of care, they are considering removing the futile care Critical Care - Objective Last 24 Hour Vital Signs Date Time Temp Pulse Resp B/P (MAP) Pulse Ox O2 Delivery O2 Flow Rate FiO2 02/25/17 06:00 80 22 91/51 98 Mechanical Ventilator 30 02/25/17 05:14 86 24 30 02/25/17 05:00 84 22 100/54 98 Mechanical Ventilator 30 02/25/17 04:00 100.4 84 22 100/56 98 Mechanical Ventilator 30 02/25/17 04:00 30 02/25/17 04:00 84 02/25/17 03:02 85 24 30 02/25/17 03:00 84 22 98/58 98 Mechanical Ventilator 30 02/25/17 02:00 84 22 99/55 99 Mechanical Ventilator 30 02/25/17 01:05 86 23 30 02/25/17 01:00 86 23 100/56 99 Mechanical Ventilator 30 02/25/17 01:00 100/56 02/25/17 00:30 85 23 97/54 99 Mechanical Ventilator 30 02/25/17 00:00 30 02/25/17 00:00 85 02/25/17 00:00 120/63 02/25/17 00:00 99.0 85 24 120/63 99 Mechanical Ventilator 30 02/24/17 23:30 86 22 110/61 99 Mechanical Ventilator 30 02/24/17 23:01 84 25 30 02/24/17 23:00 110/61 02/24/17 23:00 86 22 108/61 99 Mechanical Ventilator 30 02/24/17 22:30 79 20 112/64 99 Mechanical Ventilator 30 02/24/17 22:00 114/63 02/24/17 22:00 80 21 115/65 99 Mechanical Ventilator 30 02/24/17 21:30 85 21 110/65 99 Mechanical Ventilator 30 02/24/17 21:00 87 23 30 02/24/17 21:00 86 21 115/65 99 Mechanical Ventilator 30 02/24/17 21:00 115/65 02/24/17 20:30 84 22 114/63 99 Mechanical Ventilator 30 02/24/17 20:00 84 02/24/17 20:00 98.9 84 21 119/69 99 Mechanical Ventilator 30 02/24/17 20:00 119/69 02/24/17 20:00 30 02/24/17 19:00 82 23 108/59 98 Mechanical Ventilator 30 02/24/17 18:55 99.6 02/24/17 18:51 88 26 30 02/24/17 18:30 86 24 107/67 98 Mechanical Ventilator 30 02/24/17 18:00 87 22 119/73 98 Mechanical Ventilator 30 02/24/17 17:45 85 22 110/66 98 Mechanical Ventilator 30 02/24/17 17:30 85 21 114/70 98 Mechanical Ventilator 30 02/24/17 17:15 86 20 117/76 98 Mechanical Ventilator 30 02/24/17 17:00 86 24 114/75 100 Mechanical Ventilator 30 02/24/17 16:48 86 25 30 02/24/17 16:30 85 20 114/70 99 Mechanical Ventilator 30 02/24/17 16:00 99.8 84 20 110/65 99 Mechanical Ventilator 30 02/24/17 16:00 85 02/24/17 16:00 30 02/24/17 15:30 85 21 111/69 98 Mechanical Ventilator 30 02/24/17 15:08 82 55 30 02/24/17 15:00 84 21 118/66 98 Mechanical Ventilator 30 02/24/17 14:30 85 20 112/67 97 Mechanical Ventilator 30 02/24/17 14:00 86 23 108/66 97 Mechanical Ventilator 30 02/24/17 13:30 84 23 114/62 97 Mechanical Ventilator 30 02/24/17 13:02 86 24 30 02/24/17 13:00 85 22 110/62 97 Mechanical Ventilator 30 02/24/17 12:30 85 23 115/62 97 Mechanical Ventilator 30 02/24/17 12:00 85 02/24/17 12:00 30 02/24/17 12:00 86 23 119/63 97 Mechanical Ventilator 30 02/24/17 11:45 86 23 113/57 97 Mechanical Ventilator 30 02/24/17 11:30 86 23 117/61 97 Mechanical Ventilator 30 02/24/17 11:15 86 23 110/59 97 Mechanical Ventilator 30 02/24/17 11:00 87 23 102/54 97 Mechanical Ventilator 30 02/24/17 10:45 88 24 120/62 97 Mechanical Ventilator 30 02/24/17 10:31 89 25 30 02/24/17 10:30 88 25 114/64 97 Mechanical Ventilator 30 02/24/17 10:15 89 24 117/67 98 Mechanical Ventilator 30 02/24/17 10:00 89 25 123/65 97 Mechanical Ventilator 30 02/24/17 09:45 90 27 114/59 98 Mechanical Ventilator 30 02/24/17 09:30 91 29 122/65 97 Mechanical Ventilator 30 02/24/17 09:15 91 25 123/67 97 Mechanical Ventilator 30 02/24/17 09:00 91 26 123/67 97 Mechanical Ventilator 30 02/24/17 08:48 92 29 30 02/24/17 08:45 92 27 117/64 97 Mechanical Ventilator 30 02/24/17 08:30 93 25 115/62 97 Mechanical Ventilator 30 02/24/17 08:15 91 27 112/61 96 Mechanical Ventilator 30 02/24/17 08:00 30 02/24/17 08:00 96 02/24/17 08:00 101.0 93 26 107/57 95 Mechanical Ventilator 30 02/24/17 08:00 110/59 Status: awake Condition: critical HEENT: atraumatic Lungs: clear Heart: HR/BP unstable Micro: Microbiology Date/Time Source Procedure Growth Status 02/23/17 08:15 Blood Blood Culture - Preliminary NO GROWTH AFTER 24 HOURS Resulted 02/23/17 07:55 Blood Blood Culture - Preliminary NO GROWTH AFTER 24 HOURS Resulted 02/23/17 17:00 Nasopharynx Influenza Types A,B Antigen (KAYKAY) - Final Complete 02/23/17 11:00 Nasal Nares MRSA Culture - Final NO METHICILLIN RESISTANT STAPH AUREUS... Complete 02/23/17 10:10 Urine,Clean Catch Urine Culture - Final NO GROWTH AFTER 48 HOURS Complete Accucheck: 82 Critical Care - Subjective ROS Limited/Unobtainable: Yes ICU Day: 2 Intubation Day: 2 Condition: critical, grave EKG Rhythm: Sinus Rhythm FI02: 30 Vent Support Breath Rate: 16 Vent Support Mode: AC Vent Tidal Volume: 450 Sputum Amount: Small PEEP: 5.0 PIP: 20 I&O: Intake and Output 02/24/17 02/25/17 19:00 07:00 Intake Total 1639.79 ml 1182.15 ml Output Total 10 ml 233 ml Balance 1629.79 ml 949.15 ml Intake IV Total 1639.79 ml 1182.15 ml Output Urine Total 10 ml 230 ml Stool Total 3 ml # Bowel Movements 2 6 CXR: no change ET-Tube: 7.5 ET Position: 22 Labs: Laboratory Tests Test 02/24/17 08:00 02/25/17 04:45 02/25/17 06:40 Lactic Acid Level 4.80 mmol/L (0.66-2.22) H 4.30 mmol/L (0.66-2.22) H White Blood Count 28.9 K/UL (4.8-10.8) *H Red Blood Count 2.51 M/UL (4.70-6.10) L Hemoglobin 9.7 G/DL (14.2-18.0) L Hematocrit 26.8 % (42.0-52.0) L Mean Corpuscular Volume 107 FL (80-99) #H Mean Corpuscular Hemoglobin 38.7 PG (27.0-31.0) H Mean Corpuscular Hemoglobin Concent 36.3 G/DL (32.0-36.0) H Red Cell Distribution Width 11.3 % (11.6-14.8) L Platelet Count 28 K/UL (150-450) #L Mean Platelet Volume 10.2 FL (6.5-10.1) H Neutrophils (%) (Auto) % (45.0-75.0) Lymphocytes (%) (Auto) % (20.0-45.0) Monocytes (%) (Auto) % (1.0-10.0) Eosinophils (%) (Auto) % (0.0-3.0) Basophils (%) (Auto) % (0.0-2.0) Neutrophils % (Manual) Pending Lymphocytes % (Manual) Pending Platelet Estimate Pending Platelet Morphology Pending Sodium Level 140 MMOL/L (136-145) Potassium Level 2.9 MMOL/L (3.5-5.1) L Chloride Level 102 MMOL/L (98-107) Carbon Dioxide Level 20 MMOL/L (21-32) L Anion Gap 19 mmol/L (5-15) H Blood Urea Nitrogen 100 mg/dL (7-18) H Creatinine 6.9 MG/DL (0.55-1.30) H Estimat Glomerular Filtration Rate 8.5 mL/min (>60) Glucose Level 212 MG/DL (74-106) H Uric Acid Pending Calcium Level 6.4 MG/DL (8.5-10.1) L Phosphorus Level 6.3 MG/DL (2.5-4.9) H Magnesium Level 2.2 MG/DL (1.8-2.4) Total Bilirubin 17.1 MG/DL (0.2-1.0) H Direct Bilirubin 13.2 MG/DL (0.0-0.3) H Gamma Glutamyl Transpeptidase 141 U/L (5-85) H Aspartate Amino Transf (AST/SGOT) 256 U/L (15-37) H Alanine Aminotransferase (ALT/SGPT) 106 U/L (12-78) H Alkaline Phosphatase 219 U/L (46-116) H Ammonia 128 umol/L (11-32) H C-Reactive Protein, Quantitative 6.8 mg/dL (0.00-0.90) H Pro-B-Type Natriuretic Peptide 99490 pg/mL (0-125) H Total Protein 6.0 G/DL (6.4-8.2) L Albumin 1.2 G/DL (3.4-5.0) L Globulin 4.8 g/dL Albumin/Globulin Ratio 0.2 (1.0-2.7) L Coccidioides Antibody (Comp Fix) Pending Cryptococcus Antigen Pending Arterial Blood pH 7.440 (7.350-7.450) Arterial Blood Partial Pressure CO2 30.7 mmHg (35.0-45.0) L Arterial Blood Partial Pressure O2 98.9 mmHg (75.0-100.0) Arterial Blood HCO3 20.7 mmol/L (22.0-26.0) L Arterial Blood Oxygen Saturation 97.2 % (92.0-98.0) Arterial Blood Base Excess -2.7 Nigel Test Positive KAT DARNELL Feb 25, 2017 07:48
[2017-02-25] MEDS: Heparin 5000 units/ml inj SUBQ SCH (09:00)
[2017-02-25] MEDS: Pantoprazole Inj IVP SCH (09:00)
--- NOTE | 2017-02-25 09:07 | Nephrology Progress Note ---
Assessment/Plan Problem List: (1) Septic shock (2) Renal failure (3) Lactic acidosis (4) Multiorgan failure Assessment Renal failure acute Sepsis, Shock Hypoglycemia Hyponatremia Hepatic encephalopathy Elevated troponin Lactic acidosis Respiratory failure on vent Plan Poor prognosis molina hydrate dialysis attempt? done 02/23 repeat 02/25 fluid challenge pressors steroids i favor comfort care Subjective ROS Limited/Unobtainable: Yes Objective Objective Last 24 Hour Vital Signs Date Time Temp Pulse Resp B/P (MAP) Pulse Ox O2 Delivery O2 Flow Rate FiO2 02/25/17 08:00 30 02/25/17 08:00 99.3 86 24 98/57 93 Mechanical Ventilator 30 02/25/17 08:00 86 02/25/17 07:00 86 24 101/60 97 Mechanical Ventilator 30 02/25/17 06:30 86 24 30 02/25/17 06:00 80 22 91/51 98 Mechanical Ventilator 30 02/25/17 05:14 86 24 30 02/25/17 05:00 84 22 100/54 98 Mechanical Ventilator 30 02/25/17 04:00 100.4 84 22 100/56 98 Mechanical Ventilator 30 02/25/17 04:00 30 02/25/17 04:00 84 02/25/17 03:02 85 24 30 02/25/17 03:00 84 22 98/58 98 Mechanical Ventilator 30 02/25/17 02:00 84 22 99/55 99 Mechanical Ventilator 30 02/25/17 01:05 86 23 30 02/25/17 01:00 86 23 100/56 99 Mechanical Ventilator 30 02/25/17 01:00 100/56 02/25/17 00:30 85 23 97/54 99 Mechanical Ventilator 30 02/25/17 00:00 30 02/25/17 00:00 85 02/25/17 00:00 120/63 02/25/17 00:00 99.0 85 24 120/63 99 Mechanical Ventilator 30 02/24/17 23:30 86 22 110/61 99 Mechanical Ventilator 30 02/24/17 23:01 84 25 30 02/24/17 23:00 110/61 02/24/17 23:00 86 22 108/61 99 Mechanical Ventilator 30 02/24/17 22:30 79 20 112/64 99 Mechanical Ventilator 30 02/24/17 22:00 114/63 02/24/17 22:00 80 21 115/65 99 Mechanical Ventilator 30 02/24/17 21:30 85 21 110/65 99 Mechanical Ventilator 30 02/24/17 21:00 87 23 30 02/24/17 21:00 86 21 115/65 99 Mechanical Ventilator 30 02/24/17 21:00 115/65 02/24/17 20:30 84 22 114/63 99 Mechanical Ventilator 30 02/24/17 20:00 84 02/24/17 20:00 98.9 84 21 119/69 99 Mechanical Ventilator 30 02/24/17 20:00 119/69 02/24/17 20:00 30 02/24/17 19:00 82 23 108/59 98 Mechanical Ventilator 30 02/24/17 18:55 99.6 02/24/17 18:51 88 26 30 02/24/17 18:30 86 24 107/67 98 Mechanical Ventilator 30 02/24/17 18:00 87 22 119/73 98 Mechanical Ventilator 30 02/24/17 17:45 85 22 110/66 98 Mechanical Ventilator 30 02/24/17 17:30 85 21 114/70 98 Mechanical Ventilator 30 02/24/17 17:15 86 20 117/76 98 Mechanical Ventilator 30 02/24/17 17:00 86 24 114/75 100 Mechanical Ventilator 30 02/24/17 16:48 86 25 30 02/24/17 16:30 85 20 114/70 99 Mechanical Ventilator 30 02/24/17 16:00 99.8 84 20 110/65 99 Mechanical Ventilator 30 02/24/17 16:00 85 02/24/17 16:00 30 02/24/17 15:30 85 21 111/69 98 Mechanical Ventilator 30 02/24/17 15:08 82 55 30 02/24/17 15:00 84 21 118/66 98 Mechanical Ventilator 30 02/24/17 14:30 85 20 112/67 97 Mechanical Ventilator 30 02/24/17 14:00 86 23 108/66 97 Mechanical Ventilator 30 02/24/17 13:30 84 23 114/62 97 Mechanical Ventilator 30 02/24/17 13:02 86 24 30 02/24/17 13:00 85 22 110/62 97 Mechanical Ventilator 30 02/24/17 12:30 85 23 115/62 97 Mechanical Ventilator 30 02/24/17 12:00 85 02/24/17 12:00 30 02/24/17 12:00 86 23 119/63 97 Mechanical Ventilator 30 02/24/17 11:45 86 23 113/57 97 Mechanical Ventilator 30 02/24/17 11:30 86 23 117/61 97 Mechanical Ventilator 30 02/24/17 11:15 86 23 110/59 97 Mechanical Ventilator 30 02/24/17 11:00 87 23 102/54 97 Mechanical Ventilator 30 02/24/17 10:45 88 24 120/62 97 Mechanical Ventilator 30 02/24/17 10:31 89 25 30 02/24/17 10:30 88 25 114/64 97 Mechanical Ventilator 30 02/24/17 10:15 89 24 117/67 98 Mechanical Ventilator 30 02/24/17 10:00 89 25 123/65 97 Mechanical Ventilator 30 02/24/17 09:45 90 27 114/59 98 Mechanical Ventilator 30 02/24/17 09:30 91 29 122/65 97 Mechanical Ventilator 30 02/24/17 09:15 91 25 123/67 97 Mechanical Ventilator 30 Intake and Output 02/24/17 02/25/17 19:00 07:00 Intake Total 1639.79 ml 1307.15 ml Output Total 10 ml 248 ml Balance 1629.79 ml 1059.15 ml Intake IV Total 1639.79 ml 1307.15 ml Output Urine Total 10 ml 245 ml Stool Total 3 ml # Bowel Movements 2 6 Laboratory Tests 02/25/17 04:45: White Blood Count 28.9*H, Red Blood Count 2.51L, Hemoglobin 9.7L, Hematocrit 26.8L, Mean Corpuscular Volume 107#H, Mean Corpuscular Hemoglobin 38.7H, Mean Corpuscular Hemoglobin Concent 36.3H, Red Cell Distribution Width 11.3L, Platelet Count 28#L, Mean Platelet Volume 10.2H, Neutrophils (%) (Auto) , Lymphocytes (%) (Auto) , Monocytes (%) (Auto) , Eosinophils (%) (Auto) , Basophils (%) (Auto) , Differential Total Cells Counted 100, Neutrophils % ( Manual) 91H, Lymphocytes % (Manual) 8L, Monocytes % (Manual) 1, Eosinophils % ( Manual) 0, Basophils % (Manual) 0, Band Neutrophils 0, Platelet Estimate DecreasedL, Platelet Morphology Normal, Hypochromasia 1+, Macrocytosis 1+, Sodium Level 140, Potassium Level 2.9L, Chloride Level 102, Carbon Dioxide Level 20L, Anion Gap 19H, Blood Urea Nitrogen 100H, Creatinine 6.9H, Estimat Glomerular Filtration Rate 8.5, Glucose Level 212H, Lactic Acid Level 4.30H, Uric Acid 10.6H, Calcium Level 6.4L, Phosphorus Level 6.3H, Magnesium Level 2.2 , Total Bilirubin 17.1H, Direct Bilirubin 13.2H, Gamma Glutamyl Transpeptidase 141H, Aspartate Amino Transf (AST/SGOT) 256H, Alanine Aminotransferase (ALT/SGPT ) 106H, Alkaline Phosphatase 219H, Ammonia 128H, C-Reactive Protein, Quantitative 6.8H, Pro-B-Type Natriuretic Peptide 33375W, Total Protein 6.0L, Albumin 1.2L, Globulin 4.8, Albumin/Globulin Ratio 0.2L, Coccidioides Antibody ( Comp Fix) [Pending], Cryptococcus Antigen [Pending] 02/25/17 06:40: Arterial Blood pH 7.440, Arterial Blood Partial Pressure CO2 30.7L, Arterial Blood Partial Pressure O2 98.9, Arterial Blood HCO3 20.7L, Arterial Blood Oxygen Saturation 97.2, Arterial Blood Base Excess -2.7, Nigel Test Positive Height (Feet): 5 Height (Inches): 8.00 Weight (Pounds): 160 General Appearance: other - jaundiced Cardiovascular: tachycardia Respiratory/Chest: decreased breath sounds Abdomen: distended Objective no change JORDON PRETTY Feb 25, 2017 09:07
--- NOTE | 2017-02-25 10:48 | Diagnostic Imaging Report ---
Indication: Dyspnea Technique: XRAY Chest 1v Comparison: 02/24/2017 Findings: Endotracheal tube and right IJ approach catheter unchanged in position. Interval placement of NG tube, which courses below level of diaphragms, tip and side port in the region of the proximal stomach. Heart size and mediastinal contours are stable. There is persistent interstitial opacity last edema. Unchanged patchy bibasilar opacities. No pneumothorax. Impression: Interval placement of NG tube, tip and side-hole in the stomach. Slight interval improvement of interstitial opacification/edema. Persistent patchy bibasilar atelectasis/opacities.
[2017-02-25] MEDS: Meropenem 500 MG in NS 55 ML IVPB SCH (11:00)
[2017-02-25] MEDS ORDERED: Glycopyrrolate 0.2mg/ml 1ml Vial IV PRN (11:15)
[2017-02-25] MEDS ORDERED: Morphine Sulfate 10mg/ml Inj IVP ONE (11:15)
[2017-02-25] MEDS ORDERED: Artificial Tears 1.4% Op Soln BOTH EYES PRN (11:15)
[2017-02-25] MEDS ORDERED: Haloperidol 5mg/ml Inj IM PRN (11:15)
[2017-02-25] MEDS ORDERED: Prochlorperazine 10mg tab ORAL PRN (11:15)
[2017-02-25] MEDS ORDERED: PCA Morphine 1mg/ml 30 ML IV PRN (11:15)
--- NOTE | 2017-02-25 14:45 | Infectious Diseases Prog Note ---
Assessment/Plan Assessment/Plan Assessment: Septic Shock- r/o SBP, bacteremia, UTI- ongoing/worsening- r/o candidemia -u/a WBC 2-4, nit +, leuk est +1; ucx NTD -Bcx p -CXR 02/24: Interval development of mild vascular congestion patchy left basilar opacities thought to represent atelectasis; sp cx p -CXR: no acute findings Febrile Leukocytosis, worsening Lactic acidosis, Transaminitis (AST, now ALT; worsening) Acute renal failure on HD Ethanol Cirrhosis Plan: PT ON [facility] , will sign off Subjective Allergies: Coded Allergies: No Known Allergies (Verified , 02/27/11) Subjective Afebrile Objective Vital Signs Last 24 Hour Vital Signs Date Time Temp Pulse Resp B/P (MAP) Pulse Ox O2 Delivery O2 Flow Rate FiO2 02/25/17 13:00 82 24 97/56 99 Mechanical Ventilator 30 02/25/17 12:39 Nasal Cannula 3.0 32 02/25/17 12:00 98.4 79 24 99/60 97 Mechanical Ventilator 30 02/25/17 12:00 77 02/25/17 12:00 30 02/25/17 11:00 79 24 97/54 97 Mechanical Ventilator 30 02/25/17 10:50 84 25 30 02/25/17 10:00 85 24 99/59 97 Mechanical Ventilator 30 02/25/17 09:16 86 24 30 02/25/17 09:00 86 24 97/59 97 Mechanical Ventilator 30 02/25/17 08:00 30 02/25/17 08:00 99.3 86 24 98/57 93 Mechanical Ventilator 30 02/25/17 08:00 86 02/25/17 07:00 86 24 101/60 97 Mechanical Ventilator 30 02/25/17 06:30 86 24 30 02/25/17 06:00 80 22 91/51 98 Mechanical Ventilator 30 02/25/17 05:14 86 24 30 02/25/17 05:00 84 22 100/54 98 Mechanical Ventilator 30 02/25/17 04:00 100.4 84 22 100/56 98 Mechanical Ventilator 30 02/25/17 04:00 30 02/25/17 04:00 84 02/25/17 03:02 85 24 30 02/25/17 03:00 84 22 98/58 98 Mechanical Ventilator 30 02/25/17 02:00 84 22 99/55 99 Mechanical Ventilator 30 02/25/17 01:05 86 23 30 02/25/17 01:00 86 23 100/56 99 Mechanical Ventilator 30 02/25/17 01:00 100/56 02/25/17 00:30 85 23 97/54 99 Mechanical Ventilator 30 02/25/17 00:00 30 02/25/17 00:00 85 02/25/17 00:00 120/63 02/25/17 00:00 99.0 85 24 120/63 99 Mechanical Ventilator 30 02/24/17 23:30 86 22 110/61 99 Mechanical Ventilator 30 02/24/17 23:01 84 25 30 02/24/17 23:00 110/61 02/24/17 23:00 86 22 108/61 99 Mechanical Ventilator 30 02/24/17 22:30 79 20 112/64 99 Mechanical Ventilator 30 02/24/17 22:00 114/63 02/24/17 22:00 80 21 115/65 99 Mechanical Ventilator 30 02/24/17 21:30 85 21 110/65 99 Mechanical Ventilator 30 02/24/17 21:00 87 23 30 02/24/17 21:00 86 21 115/65 99 Mechanical Ventilator 30 02/24/17 21:00 115/65 02/24/17 20:30 84 22 114/63 99 Mechanical Ventilator 30 02/24/17 20:00 84 02/24/17 20:00 98.9 84 21 119/69 99 Mechanical Ventilator 30 02/24/17 20:00 119/69 02/24/17 20:00 30 02/24/17 19:00 82 23 108/59 98 Mechanical Ventilator 30 02/24/17 18:55 99.6 02/24/17 18:51 88 26 30 02/24/17 18:30 86 24 107/67 98 Mechanical Ventilator 30 02/24/17 18:00 87 22 119/73 98 Mechanical Ventilator 30 02/24/17 17:45 85 22 110/66 98 Mechanical Ventilator 30 02/24/17 17:30 85 21 114/70 98 Mechanical Ventilator 30 02/24/17 17:15 86 20 117/76 98 Mechanical Ventilator 30 02/24/17 17:00 86 24 114/75 100 Mechanical Ventilator 30 02/24/17 16:48 86 25 30 02/24/17 16:30 85 20 114/70 99 Mechanical Ventilator 30 02/24/17 16:00 99.8 84 20 110/65 99 Mechanical Ventilator 30 02/24/17 16:00 85 02/24/17 16:00 30 02/24/17 15:30 85 21 111/69 98 Mechanical Ventilator 30 02/24/17 15:08 82 55 30 02/24/17 15:00 84 21 118/66 98 Mechanical Ventilator 30 Height (Feet): 5 Height (Inches): 8.00 Weight (Pounds): 160 HEENT: anicteric Respiratory/Chest: normal breath sounds Cardiovascular: no gallop/murmur Abdomen: non distended Microbiology Date/Time Source Procedure Growth Status 02/23/17 08:15 Blood Blood Culture - Preliminary NO GROWTH AFTER 24 HOURS Resulted 02/23/17 07:55 Blood Blood Culture - Preliminary NO GROWTH AFTER 24 HOURS Resulted 02/23/17 17:00 Nasopharynx Influenza Types A,B Antigen (KAYKAY) - Final Complete 02/23/17 11:00 Nasal Nares MRSA Culture - Final NO METHICILLIN RESISTANT STAPH AUREUS... Complete 02/23/17 10:10 Urine,Clean Catch Urine Culture - Final NO GROWTH AFTER 48 HOURS Complete 02/23/17 11:00 Rectum VRE Culture - Final NO VANCOMYCIN RESISTANT ENTEROCOCCUS ... Complete Laboratory Tests Test 02/25/17 04:40 02/25/17 04:45 02/25/17 06:40 C-Reactive Protein, Quantitative 7.0 mg/dL (0.00-0.90) H 6.8 mg/dL (0.00-0.90) H White Blood Count 28.9 K/UL (4.8-10.8) *H Red Blood Count 2.51 M/UL (4.70-6.10) L Hemoglobin 9.7 G/DL (14.2-18.0) L Hematocrit 26.8 % (42.0-52.0) L Mean Corpuscular Volume 107 FL (80-99) #H Mean Corpuscular Hemoglobin 38.7 PG (27.0-31.0) H Mean Corpuscular Hemoglobin Concent 36.3 G/DL (32.0-36.0) H Red Cell Distribution Width 11.3 % (11.6-14.8) L Platelet Count 28 K/UL (150-450) #L Mean Platelet Volume 10.2 FL (6.5-10.1) H Neutrophils (%) (Auto) % (45.0-75.0) Lymphocytes (%) (Auto) % (20.0-45.0) Monocytes (%) (Auto) % (1.0-10.0) Eosinophils (%) (Auto) % (0.0-3.0) Basophils (%) (Auto) % (0.0-2.0) Differential Total Cells Counted 100 Neutrophils % (Manual) 91 % (45-75) H Lymphocytes % (Manual) 8 % (20-45) L Monocytes % (Manual) 1 % (1-10) Eosinophils % (Manual) 0 % (0-3) Basophils % (Manual) 0 % (0-2) Band Neutrophils 0 % (0-8) Platelet Estimate Decreased L Platelet Morphology Normal Hypochromasia 1+ Macrocytosis 1+ Sodium Level 140 MMOL/L (136-145) Potassium Level 2.9 MMOL/L (3.5-5.1) L Chloride Level 102 MMOL/L (98-107) Carbon Dioxide Level 20 MMOL/L (21-32) L Anion Gap 19 mmol/L (5-15) H Blood Urea Nitrogen 100 mg/dL (7-18) H Creatinine 6.9 MG/DL (0.55-1.30) H Estimat Glomerular Filtration Rate 8.5 mL/min (>60) Glucose Level 212 MG/DL (74-106) H Lactic Acid Level 4.30 mmol/L (0.66-2.22) H Uric Acid 10.6 MG/DL (2.6-7.2) H Calcium Level 6.4 MG/DL (8.5-10.1) L Phosphorus Level 6.3 MG/DL (2.5-4.9) H Magnesium Level 2.2 MG/DL (1.8-2.4) Total Bilirubin 17.1 MG/DL (0.2-1.0) H Direct Bilirubin 13.2 MG/DL (0.0-0.3) H Gamma Glutamyl Transpeptidase 141 U/L (5-85) H Aspartate Amino Transf (AST/SGOT) 256 U/L (15-37) H Alanine Aminotransferase (ALT/SGPT) 106 U/L (12-78) H Alkaline Phosphatase 219 U/L (46-116) H Ammonia 128 umol/L (11-32) H Pro-B-Type Natriuretic Peptide 95783 pg/mL (0-125) H Total Protein 6.0 G/DL (6.4-8.2) L Albumin 1.2 G/DL (3.4-5.0) L Globulin 4.8 g/dL Albumin/Globulin Ratio 0.2 (1.0-2.7) L Coccidioides Antibody (Comp Fix) Pending Cryptococcus Antigen Pending Arterial Blood pH 7.440 (7.350-7.450) Arterial Blood Partial Pressure CO2 30.7 mmHg (35.0-45.0) L Arterial Blood Partial Pressure O2 98.9 mmHg (75.0-100.0) Arterial Blood HCO3 20.7 mmol/L (22.0-26.0) L Arterial Blood Oxygen Saturation 97.2 % (92.0-98.0) Arterial Blood Base Excess -2.7 Nigel Test Positive Current Medications Medications (Trade) Dose Ordered Sig/Gabby Route PRN Reason Start Time Stop Time Status Last Admin Dose Admin Acetaminophen (Tylenol) 650 mg Q4H PRN ORAL fever (temp> 100.5F) 02/23/17 11:15 03/25/17 11:14 02/24/17 17:30 Albuterol/ Ipratropium (Albuterol/ Ipratropium) 3 ml Q4H PRN HHN Shortness of Breath 02/23/17 11:15 02/28/17 11:14 Artificial Tears (Akwa-Tears) 1 drop QIDPRN PRN BOTH EYES Dry Eyes 02/25/17 11:15 03/27/17 11:14 Chlorhexidine Gluconate (María Elena-Hex 2%) 1 applic DAILY@2000 TOPIC 02/25/17 20:00 03/27/17 19:59 Glycopyrrolate (Robinul) 0.1 mg Q6H PRN IV excessive secretions 02/25/17 11:15 03/27/17 11:14 Haloperidol Lactate (Haldol) 1 mg Q30M PRN IM Agitation 02/25/17 11:15 03/27/17 11:14 Morphine Sulfate 30 ml @ 0 mls/hr [employer]S [employer]PER[employer]OR Protocol PRN IV PAIN *[facility] ONLY* 02/25/17 13:30 02/27/17 13:29 Prochlorperazine (Compazine) 10 mg Q6H PRN ORAL Nausea & Vomiting 02/25/17 11:15 03/27/17 11:14 DAVIDE VALENTINO M.D. Feb 25, 2017 14:45
--- NOTE | 2017-02-25 16:31 | Internal Med Progress Note ---
Subjective Date of Service: Feb 25, 2017 Physician Name Chu Esquivel Attending Physician Raz Zuniga MD Current Medications Medications (Trade) Dose Ordered Sig/Gabby Route PRN Reason Start Time Stop Time Status Last Admin Dose Admin Acetaminophen (Tylenol) 650 mg Q4H PRN ORAL fever (temp> 100.5F) 02/23/17 11:15 03/25/17 11:14 02/24/17 17:30 Albuterol/ Ipratropium (Albuterol/ Ipratropium) 3 ml Q4H PRN HHN Shortness of Breath 02/23/17 11:15 02/28/17 11:14 Artificial Tears (Akwa-Tears) 1 drop QIDPRN PRN BOTH EYES Dry Eyes 02/25/17 11:15 03/27/17 11:14 Chlorhexidine Gluconate (María Elena-Hex 2%) 1 applic DAILY@2000 TOPIC 02/25/17 20:00 03/27/17 19:59 Glycopyrrolate (Robinul) 0.1 mg Q6H PRN IV excessive secretions 02/25/17 11:15 03/27/17 11:14 Haloperidol Lactate (Haldol) 1 mg Q30M PRN IM Agitation 02/25/17 11:15 03/27/17 11:14 Morphine Sulfate 30 ml @ 0 mls/hr PICKING TECH Protocol PRN IV PAIN *COMFORT CARE ONLY* 02/25/17 13:30 02/27/17 13:29 Prochlorperazine (Compazine) 10 mg Q6H PRN ORAL Nausea & Vomiting 02/25/17 11:15 03/27/17 11:14 Allergies: Coded Allergies: No Known Allergies (Verified , 02/27/11) ROS Limited/Unobtainable: Yes Subjective 51 YO M admitted with altered mental status. Now Respiratory failure. Patient terminally extubated earlier today; comfort measures in place. Objective Last Vital Signs Date Time Temp Pulse Resp B/P (MAP) Pulse Ox O2 Delivery O2 Flow Rate FiO2 02/25/17 16:11 98.8 88 20 112/63 99 02/25/17 13:00 Mechanical Ventilator 30 02/25/17 12:39 3.0 Laboratory Tests Test 02/25/17 04:40 02/25/17 04:45 02/25/17 06:40 C-Reactive Protein, Quantitative 7.0 mg/dL (0.00-0.90) H 6.8 mg/dL (0.00-0.90) H White Blood Count 28.9 K/UL (4.8-10.8) *H Red Blood Count 2.51 M/UL (4.70-6.10) L Hemoglobin 9.7 G/DL (14.2-18.0) L Hematocrit 26.8 % (42.0-52.0) L Mean Corpuscular Volume 107 FL (80-99) #H Mean Corpuscular Hemoglobin 38.7 PG (27.0-31.0) H Mean Corpuscular Hemoglobin Concent 36.3 G/DL (32.0-36.0) H Red Cell Distribution Width 11.3 % (11.6-14.8) L Platelet Count 28 K/UL (150-450) #L Mean Platelet Volume 10.2 FL (6.5-10.1) H Neutrophils (%) (Auto) % (45.0-75.0) Lymphocytes (%) (Auto) % (20.0-45.0) Monocytes (%) (Auto) % (1.0-10.0) Eosinophils (%) (Auto) % (0.0-3.0) Basophils (%) (Auto) % (0.0-2.0) Differential Total Cells Counted 100 Neutrophils % (Manual) 91 % (45-75) H Lymphocytes % (Manual) 8 % (20-45) L Monocytes % (Manual) 1 % (1-10) Eosinophils % (Manual) 0 % (0-3) Basophils % (Manual) 0 % (0-2) Band Neutrophils 0 % (0-8) Platelet Estimate Decreased L Platelet Morphology Normal Hypochromasia 1+ Macrocytosis 1+ Sodium Level 140 MMOL/L (136-145) Potassium Level 2.9 MMOL/L (3.5-5.1) L Chloride Level 102 MMOL/L (98-107) Carbon Dioxide Level 20 MMOL/L (21-32) L Anion Gap 19 mmol/L (5-15) H Blood Urea Nitrogen 100 mg/dL (7-18) H Creatinine 6.9 MG/DL (0.55-1.30) H Estimat Glomerular Filtration Rate 8.5 mL/min (>60) Glucose Level 212 MG/DL (74-106) H Lactic Acid Level 4.30 mmol/L (0.66-2.22) H Uric Acid 10.6 MG/DL (2.6-7.2) H Calcium Level 6.4 MG/DL (8.5-10.1) L Phosphorus Level 6.3 MG/DL (2.5-4.9) H Magnesium Level 2.2 MG/DL (1.8-2.4) Total Bilirubin 17.1 MG/DL (0.2-1.0) H Direct Bilirubin 13.2 MG/DL (0.0-0.3) H Gamma Glutamyl Transpeptidase 141 U/L (5-85) H Aspartate Amino Transf (AST/SGOT) 256 U/L (15-37) H Alanine Aminotransferase (ALT/SGPT) 106 U/L (12-78) H Alkaline Phosphatase 219 U/L (46-116) H Ammonia 128 umol/L (11-32) H Pro-B-Type Natriuretic Peptide 39093 pg/mL (0-125) H Total Protein 6.0 G/DL (6.4-8.2) L Albumin 1.2 G/DL (3.4-5.0) L Globulin 4.8 g/dL Albumin/Globulin Ratio 0.2 (1.0-2.7) L Coccidioides Antibody (Comp Fix) Pending Cryptococcus Antigen Pending Arterial Blood pH 7.440 (7.350-7.450) Arterial Blood Partial Pressure CO2 30.7 mmHg (35.0-45.0) L Arterial Blood Partial Pressure O2 98.9 mmHg (75.0-100.0) Arterial Blood HCO3 20.7 mmol/L (22.0-26.0) L Arterial Blood Oxygen Saturation 97.2 % (92.0-98.0) Arterial Blood Base Excess -2.7 Nigel Test Positive Microbiology Date/Time Source Procedure Growth Status 02/23/17 08:15 Blood Blood Culture - Preliminary NO GROWTH AFTER 24 HOURS Resulted 02/23/17 07:55 Blood Blood Culture - Preliminary NO GROWTH AFTER 24 HOURS Resulted 02/23/17 17:00 Nasopharynx Influenza Types A,B Antigen (KAYKAY) - Final Complete 02/23/17 11:00 Nasal Nares MRSA Culture - Final NO METHICILLIN RESISTANT STAPH AUREUS... Complete 02/23/17 10:10 Urine,Clean Catch Urine Culture - Final NO GROWTH AFTER 48 HOURS Complete 02/23/17 11:00 Rectum VRE Culture - Final NO VANCOMYCIN RESISTANT ENTEROCOCCUS ... Complete Intake and Output 02/24/17 02/25/17 19:00 07:00 Intake Total 1639.79 ml 1307.15 ml Output Total 10 ml 248 ml Balance 1629.79 ml 1059.15 ml Intake IV Total 1639.79 ml 1307.15 ml Output Urine Total 10 ml 245 ml Stool Total 3 ml # Bowel Movements 2 6 Objective eneral Appearance: WD/WN, lethargic EENT: PERRL/EOMI, normal ENT inspection Neck: non-tender, normal alignment, supple, normal inspection Cardiovascular: normal peripheral pulses, normal rate, regular rhythm, no gallop/murmur, no JVD Respiratory/Chest: no accessory muscle use, respiratory distress, crackles/ rales, rhonchi - bilaterally, expiratory wheezing Abdomen: normal bowel sounds, non tender, soft, no organomegaly, no mass Extremities: normal range of motion Skin: normal pigmentation, warm/dry Assessment/Plan Problem List: (1) Alcohol dependence (2) Cirrhosis of liver (3) Elevated liver enzymes (4) Altered mental status Assessment & Plan: ?due to liver cirrhosis? continue lactulose (5) Respiratory failure Assessment & Plan: Terminally extubated per pulmonary (6) Sepsis Assessment & Plan: See ID note. Continue vanco, meropenem, amikacin and micafungin. Await culture results. (7) Septic shock (8) CHF (congestive heart failure) (9) Renal failure Assessment & Plan: See nephrology note. Status: deteriorating Assessment/Plan Prognosis poor; Comfort care. Family present and aware CHU ESQUIVEL Feb 25, 2017 16:30
[2017-02-25] MEDS: PCA Morphine 1mg/ml 30 ML IV PRN ×2 (16:41→22:58)
[2017-02-25] MEDS ORDERED: NS 500ML ONE (17:39)
[2017-02-25] MEDS ORDERED: Tubing IV Secondary IV ONE (17:41)
[2017-02-25] MEDS: Dyna-Hex 2% Top Sol 2oz TOPIC SCH (20:00)
--- NOTE | 2017-02-25 20:39 | Cardiology Progress Note ---
Objective Last 24 Hour Vital Signs Date Time Temp Pulse Resp B/P (MAP) Pulse Ox O2 Delivery O2 Flow Rate FiO2 02/25/17 20:05 16 02/25/17 16:11 98.8 88 20 112/63 99 02/25/17 13:00 82 24 97/56 99 Mechanical Ventilator 30 02/25/17 12:39 Nasal Cannula 3.0 32 02/25/17 12:00 98.4 79 24 99/60 97 Mechanical Ventilator 30 02/25/17 12:00 77 02/25/17 12:00 30 02/25/17 11:00 79 24 97/54 97 Mechanical Ventilator 30 02/25/17 10:50 84 25 30 02/25/17 10:00 85 24 99/59 97 Mechanical Ventilator 30 02/25/17 09:16 86 24 30 02/25/17 09:00 86 24 97/59 97 Mechanical Ventilator 30 02/25/17 08:00 30 02/25/17 08:00 99.3 86 24 98/57 93 Mechanical Ventilator 30 02/25/17 08:00 86 02/25/17 07:00 86 24 101/60 97 Mechanical Ventilator 30 02/25/17 06:30 86 24 30 02/25/17 06:00 80 22 91/51 98 Mechanical Ventilator 30 02/25/17 05:14 86 24 30 02/25/17 05:00 84 22 100/54 98 Mechanical Ventilator 30 02/25/17 04:00 100.4 84 22 100/56 98 Mechanical Ventilator 30 02/25/17 04:00 30 02/25/17 04:00 84 02/25/17 03:02 85 24 30 02/25/17 03:00 84 22 98/58 98 Mechanical Ventilator 30 02/25/17 02:00 84 22 99/55 99 Mechanical Ventilator 30 02/25/17 01:05 86 23 30 02/25/17 01:00 86 23 100/56 99 Mechanical Ventilator 30 02/25/17 01:00 100/56 02/25/17 00:30 85 23 97/54 99 Mechanical Ventilator 30 02/25/17 00:00 30 02/25/17 00:00 85 02/25/17 00:00 120/63 02/25/17 00:00 99.0 85 24 120/63 99 Mechanical Ventilator 30 02/24/17 23:30 86 22 110/61 99 Mechanical Ventilator 30 02/24/17 23:01 84 25 30 02/24/17 23:00 110/61 02/24/17 23:00 86 22 108/61 99 Mechanical Ventilator 30 02/24/17 22:30 79 20 112/64 99 Mechanical Ventilator 30 02/24/17 22:00 114/63 02/24/17 22:00 80 21 115/65 99 Mechanical Ventilator 30 02/24/17 21:30 85 21 110/65 99 Mechanical Ventilator 30 02/24/17 21:00 87 23 30 02/24/17 21:00 86 21 115/65 99 Mechanical Ventilator 30 02/24/17 21:00 115/65 Intake and Output 02/24/17 02/25/17 19:00 07:00 Intake Total 1639.79 ml 1307.15 ml Output Total 10 ml 248 ml Balance 1629.79 ml 1059.15 ml Intake IV Total 1639.79 ml 1307.15 ml Output Urine Total 10 ml 245 ml Stool Total 3 ml # Bowel Movements 2 6 Laboratory Tests Test 02/25/17 04:40 02/25/17 04:45 02/25/17 06:40 C-Reactive Protein, Quantitative 7.0 mg/dL (0.00-0.90) H 6.8 mg/dL (0.00-0.90) H White Blood Count 28.9 K/UL (4.8-10.8) *H Red Blood Count 2.51 M/UL (4.70-6.10) L Hemoglobin 9.7 G/DL (14.2-18.0) L Hematocrit 26.8 % (42.0-52.0) L Mean Corpuscular Volume 107 FL (80-99) #H Mean Corpuscular Hemoglobin 38.7 PG (27.0-31.0) H Mean Corpuscular Hemoglobin Concent 36.3 G/DL (32.0-36.0) H Red Cell Distribution Width 11.3 % (11.6-14.8) L Platelet Count 28 K/UL (150-450) #L Mean Platelet Volume 10.2 FL (6.5-10.1) H Neutrophils (%) (Auto) % (45.0-75.0) Lymphocytes (%) (Auto) % (20.0-45.0) Monocytes (%) (Auto) % (1.0-10.0) Eosinophils (%) (Auto) % (0.0-3.0) Basophils (%) (Auto) % (0.0-2.0) Differential Total Cells Counted 100 Neutrophils % (Manual) 91 % (45-75) H Lymphocytes % (Manual) 8 % (20-45) L Monocytes % (Manual) 1 % (1-10) Eosinophils % (Manual) 0 % (0-3) Basophils % (Manual) 0 % (0-2) Band Neutrophils 0 % (0-8) Platelet Estimate Decreased L Platelet Morphology Normal Hypochromasia 1+ Macrocytosis 1+ Sodium Level 140 MMOL/L (136-145) Potassium Level 2.9 MMOL/L (3.5-5.1) L Chloride Level 102 MMOL/L (98-107) Carbon Dioxide Level 20 MMOL/L (21-32) L Anion Gap 19 mmol/L (5-15) H Blood Urea Nitrogen 100 mg/dL (7-18) H Creatinine 6.9 MG/DL (0.55-1.30) H Estimat Glomerular Filtration Rate 8.5 mL/min (>60) Glucose Level 212 MG/DL (74-106) H Lactic Acid Level 4.30 mmol/L (0.66-2.22) H Uric Acid 10.6 MG/DL (2.6-7.2) H Calcium Level 6.4 MG/DL (8.5-10.1) L Phosphorus Level 6.3 MG/DL (2.5-4.9) H Magnesium Level 2.2 MG/DL (1.8-2.4) Total Bilirubin 17.1 MG/DL (0.2-1.0) H Direct Bilirubin 13.2 MG/DL (0.0-0.3) H Gamma Glutamyl Transpeptidase 141 U/L (5-85) H Aspartate Amino Transf (AST/SGOT) 256 U/L (15-37) H Alanine Aminotransferase (ALT/SGPT) 106 U/L (12-78) H Alkaline Phosphatase 219 U/L (46-116) H Ammonia 128 umol/L (11-32) H Pro-B-Type Natriuretic Peptide 97335 pg/mL (0-125) H Total Protein 6.0 G/DL (6.4-8.2) L Albumin 1.2 G/DL (3.4-5.0) L Globulin 4.8 g/dL Albumin/Globulin Ratio 0.2 (1.0-2.7) L Coccidioides Antibody (Comp Fix) Pending Cryptococcus Antigen Pending Arterial Blood pH 7.440 (7.350-7.450) Arterial Blood Partial Pressure CO2 30.7 mmHg (35.0-45.0) L Arterial Blood Partial Pressure O2 98.9 mmHg (75.0-100.0) Arterial Blood HCO3 20.7 mmol/L (22.0-26.0) L Arterial Blood Oxygen Saturation 97.2 % (92.0-98.0) Arterial Blood Base Excess -2.7 Nigel Test Positive Microbiology Date/Time Source Procedure Growth Status 02/23/17 08:15 Blood Blood Culture - Preliminary NO GROWTH AFTER 24 HOURS Resulted 02/23/17 07:55 Blood Blood Culture - Preliminary NO GROWTH AFTER 24 HOURS Resulted 02/23/17 17:00 Nasopharynx Influenza Types A,B Antigen (KAYKAY) - Final Complete 02/23/17 11:00 Nasal Nares MRSA Culture - Final NO METHICILLIN RESISTANT STAPH AUREUS... Complete 02/23/17 10:10 Urine,Clean Catch Urine Culture - Final NO GROWTH AFTER 48 HOURS Complete 02/23/17 11:00 Rectum VRE Culture - Final NO VANCOMYCIN RESISTANT ENTEROCOCCUS ... Complete LATOYA MACDONALD Feb 25, 2017 20:39
[2017-02-26 00:33] VITALS: BP 101/60
[2017-02-26] MEDS: PCA Morphine 1mg/ml 30 ML IV PRN ×4 (04:44→22:40)
[2017-02-26 12:00] VITALS: BP 83/48
--- NOTE | 2017-02-26 12:19 | Nephrology Progress Note ---
Assessment/Plan Problem List: (1) Septic shock (2) Renal failure (3) Lactic acidosis (4) Multiorgan failure Assessment Renal failure acute Sepsis, Shock Hypoglycemia Hyponatremia Hepatic encephalopathy Elevated troponin Lactic acidosis Respiratory failure on vent Plan Poor prognosis extubated comfort care pre terminal Subjective ROS Limited/Unobtainable: Yes Objective Objective Last 24 Hour Vital Signs Date Time Temp Pulse Resp B/P (MAP) Pulse Ox O2 Delivery O2 Flow Rate FiO2 02/26/17 11:09 14 02/26/17 09:40 14 02/26/17 09:25 88 18 Nasal Cannula 3.0 02/26/17 09:24 93 Nasal Cannula 3.0 28 02/26/17 09:24 Nasal Cannula 3.0 02/26/17 07:30 24 Nasal Cannula 3.0 02/26/17 05:50 14 02/26/17 05:14 98.7 02/26/17 04:45 14 02/26/17 01:50 14 02/26/17 00:33 98.7 83 21 101/60 96 02/26/17 00:30 99 Nasal Cannula 3.0 02/25/17 23:00 14 02/25/17 22:41 14 02/25/17 20:05 16 02/25/17 19:30 Nasal Cannula 2.0 28 02/25/17 19:30 90 20 Nasal Cannula 2.0 28 02/25/17 19:30 92 Nasal Cannula 2.0 28 02/25/17 16:11 98.8 88 20 112/63 99 02/25/17 13:00 82 24 97/56 99 Mechanical Ventilator 30 02/25/17 12:39 Nasal Cannula 3.0 32 Intake and Output 02/25/17 02/26/17 19:00 07:00 Intake Total 250 ml Output Total 160 ml 110 ml Balance 90 ml -110 ml Intake IV Total 250 ml Output Urine Total 160 ml 110 ml # Bowel Movements 2 1 Height (Feet): 5 Height (Inches): 8.00 Weight (Pounds): 160 General Appearance: no apparent distress Objective no change JORDON PRETTY Feb 26, 2017 12:19
--- NOTE | 2017-02-26 13:45 | Pulmonology Progress Note ---
Subjective ROS Limited/Unobtainable: No Allergies: Coded Allergies: No Known Allergies (Verified , 02/27/11) Objective Last 24 Hour Vital Signs Date Time Temp Pulse Resp B/P (MAP) Pulse Ox O2 Delivery O2 Flow Rate FiO2 02/26/17 11:09 14 02/26/17 09:40 14 02/26/17 09:25 88 18 Nasal Cannula 3.0 02/26/17 09:24 93 Nasal Cannula 3.0 28 02/26/17 09:24 Nasal Cannula 3.0 02/26/17 07:30 24 Nasal Cannula 3.0 02/26/17 05:50 14 02/26/17 05:14 98.7 02/26/17 04:45 14 02/26/17 01:50 14 02/26/17 00:33 98.7 83 21 101/60 96 02/26/17 00:30 99 Nasal Cannula 3.0 02/25/17 23:00 14 02/25/17 22:41 14 02/25/17 20:05 16 02/25/17 19:30 Nasal Cannula 2.0 28 02/25/17 19:30 90 20 Nasal Cannula 2.0 28 02/25/17 19:30 92 Nasal Cannula 2.0 28 02/25/17 16:11 98.8 88 20 112/63 99 Intake and Output 02/25/17 02/26/17 19:00 07:00 Intake Total 250 ml Output Total 160 ml 110 ml Balance 90 ml -110 ml Intake IV Total 250 ml Output Urine Total 160 ml 110 ml # Bowel Movements 2 1 Objective agonal breathing on morphine drip Microbiology Date/Time Source Procedure Growth Status 02/23/17 17:00 Nasopharynx Influenza Types A,B Antigen (KAYKAY) - Final Complete Current Medications Medications (Trade) Dose Ordered Sig/Gabby Route PRN Reason Start Time Stop Time Status Last Admin Dose Admin Acetaminophen (Tylenol) 650 mg Q4H PRN ORAL fever (temp> 100.5F) 02/23/17 11:15 03/25/17 11:14 02/24/17 17:30 Albuterol/ Ipratropium (Albuterol/ Ipratropium) 3 ml Q4H PRN HHN Shortness of Breath 02/23/17 11:15 02/28/17 11:14 Artificial Tears (Akwa-Tears) 1 drop QIDPRN PRN BOTH EYES Dry Eyes 02/25/17 11:15 03/27/17 11:14 Chlorhexidine Gluconate (María Elena-Hex 2%) 1 applic DAILY@2000 TOPIC 02/25/17 20:00 03/27/17 19:59 Glycopyrrolate (Robinul) 0.1 mg Q6H PRN IV excessive secretions 02/25/17 11:15 03/27/17 11:14 Haloperidol Lactate (Haldol) 1 mg Q30M PRN IM Agitation 02/25/17 11:15 03/27/17 11:14 Morphine Sulfate 30 ml @ 0 mls/hr GRAIN SHIPPER Protocol PRN IV PAIN *COMFORT CARE ONLY* 02/25/17 13:30 02/27/17 13:29 02/26/17 10:54 Prochlorperazine (Compazine) 10 mg Q6H PRN ORAL Nausea & Vomiting 02/25/17 11:15 03/27/17 11:14 KAT DARNELL Feb 26, 2017 13:45
[2017-02-26] MEDS ORDERED: NS 500ML ONE ×2 (14:34→15:01)
[2017-02-26] MEDS ORDERED: Tubing IV Secondary IV ONE (15:01)
[2017-02-26 15:53] VITALS: BP 86/44
--- NOTE | 2017-02-26 17:58 | Internal Med Progress Note ---
Subjective Date of Service: Feb 26, 2017 Physician Name Chu Esquivel Attending Physician Raz Zuniga MD Current Medications Medications (Trade) Dose Ordered Sig/Gabby Route PRN Reason Start Time Stop Time Status Last Admin Dose Admin Acetaminophen (Tylenol) 650 mg Q4H PRN ORAL fever (temp> 100.5F) 02/23/17 11:15 03/25/17 11:14 02/24/17 17:30 Albuterol/ Ipratropium (Albuterol/ Ipratropium) 3 ml Q4H PRN HHN Shortness of Breath 02/23/17 11:15 02/28/17 11:14 Artificial Tears (Akwa-Tears) 1 drop QIDPRN PRN BOTH EYES Dry Eyes 02/25/17 11:15 03/27/17 11:14 Chlorhexidine Gluconate (María Elena-Hex 2%) 1 applic DAILY@2000 TOPIC 02/25/17 20:00 03/27/17 19:59 Glycopyrrolate (Robinul) 0.1 mg Q6H PRN IV excessive secretions 02/25/17 11:15 03/27/17 11:14 Haloperidol Lactate (Haldol) 1 mg Q30M PRN IM Agitation 02/25/17 11:15 03/27/17 11:14 Morphine Sulfate 30 ml @ 0 mls/hr BOWL TOPPER Protocol PRN IV PAIN *COMFORT CARE ONLY* 02/25/17 13:30 02/27/17 13:29 02/26/17 16:54 Prochlorperazine (Compazine) 10 mg Q6H PRN ORAL Nausea & Vomiting 02/25/17 11:15 03/27/17 11:14 Allergies: Coded Allergies: No Known Allergies (Verified , 02/27/11) ROS Limited/Unobtainable: Yes Subjective 51 YO M admitted with altered mental status. Now Respiratory failure. Patient terminally extubated earlier 03/15/17; comfort measures in place. Family at bedside Objective Last Vital Signs Date Time Temp Pulse Resp B/P (MAP) Pulse Ox O2 Delivery O2 Flow Rate FiO2 02/26/17 16:54 14 02/26/17 15:53 97.9 79 86/44 96 Nasal Cannula 2.0 02/26/17 09:24 28 Intake and Output 02/25/17 02/26/17 18:59 06:59 Intake Total 375 ml Output Total 175 ml 110 ml Balance 200 ml -110 ml Intake IV Total 375 ml Output Urine Total 175 ml 110 ml # Bowel Movements 2 1 Objective eneral Appearance: WD/WN, lethargic EENT: PERRL/EOMI, normal ENT inspection Neck: non-tender, normal alignment, supple, normal inspection Cardiovascular: normal peripheral pulses, normal rate, regular rhythm, no gallop/murmur, no JVD Respiratory/Chest: no accessory muscle use, respiratory distress, crackles/ rales, rhonchi - bilaterally, expiratory wheezing Abdomen: normal bowel sounds, non tender, soft, no organomegaly, no mass Extremities: normal range of motion Skin: normal pigmentation, warm/dry Assessment/Plan Problem List: (1) Alcohol dependence (2) Cirrhosis of liver (3) Elevated liver enzymes (4) Altered mental status Assessment & Plan: ?due to liver cirrhosis? continue lactulose (5) Respiratory failure Assessment & Plan: Terminally extubated 02/25/17 per pulmonary (6) Sepsis Assessment & Plan: See ID note. Continue vanco, meropenem, amikacin and micafungin. Await culture results. (7) Septic shock (8) CHF (congestive heart failure) (9) Renal failure Assessment & Plan: See nephrology note. Assessment/Plan Prognosis poor; Comfort care. Family present and aware CHU ESQUIVEL Feb 26, 2017 17:58
[2017-02-26 20:00] VITALS: BP 85/45
[2017-02-26] MEDS: Dyna-Hex 2% Top Sol 2oz TOPIC SCH (20:26)
[2017-02-27] VITALS (7 sets, daily range): BP systolic 78–97; BP diastolic 42–50
[2017-02-27] MEDS: PCA Morphine 1mg/ml 30 ML IV PRN ×2 (04:30→11:53)
--- NOTE | 2017-02-27 10:57 | Nephrology Progress Note ---
Assessment/Plan Problem List: (1) Septic shock (2) Renal failure (3) Lactic acidosis (4) Multiorgan failure Assessment Renal failure acute Sepsis, Shock Hypoglycemia Hyponatremia Hepatic encephalopathy Elevated troponin Lactic acidosis Respiratory failure on vent Plan Poor prognosis Hypotensive extubated comfort care pre terminal Subjective ROS Limited/Unobtainable: Yes Objective Objective Last 24 Hour Vital Signs Date Time Temp Pulse Resp B/P (MAP) Pulse Ox O2 Delivery O2 Flow Rate FiO2 02/27/17 10:16 18 02/27/17 08:00 98.1 82 21 84/50 95 02/27/17 06:51 14 02/27/17 05:00 98.6 02/27/17 04:20 14 02/27/17 04:00 99.5 81 15 78/42 95 Nasal Cannula 3.0 02/27/17 02:13 14 02/27/17 00:34 98.6 80 14 80/48 97 Nasal Cannula 3.0 02/26/17 22:40 14 02/26/17 21:54 14 02/26/17 20:00 98.2 82 20 85/45 98 Nasal Cannula 3.0 02/26/17 19:10 94 Nasal Cannula 3.0 28 02/26/17 19:10 85 18 Nasal Cannula 3.0 02/26/17 19:10 Nasal Cannula 3.0 02/26/17 16:54 14 02/26/17 15:53 97.9 79 20 86/44 96 Nasal Cannula 2.0 02/26/17 13:50 14 02/26/17 12:00 83 25 83/48 98 Nasal Cannula 3.0 02/26/17 11:09 14 Intake and Output 02/26/17 02/27/17 19:00 07:00 Output Total 25 ml 15 ml Balance -25 ml -15 ml Output Urine Total 25 ml 15 ml # Voids 1 Height (Feet): 5 Height (Inches): 8.00 Weight (Pounds): 160 General Appearance: no apparent distress Objective no change JORDON PRETTY Feb 27, 2017 10:57
--- NOTE | 2017-02-27 11:13 | Cardiology Report ---
APPROVED REPORT EXAM: Two-dimensional and M-mode echocardiogram with Doppler and color Doppler. INDICATION LV FUNCTION M-Mode DIMENSIONS IVSd1.1 (0.7-1.1cm)Left Atrium (MM)3.7 (1.6-4.0cm) LVDd5.3 (3.5-5.6cm)Aortic Root3.7 (2.0-3.7cm) PWd1.4 (0.7-1.1cm)Aortic Cusp Exc.1.7 (1.5-2.0cm) IVSs1.6 cm LVDs3.3 (2.5-4.0cm) PWs1.5 cm Normal left ventricular chamber size, systolic function and wall motion. Left ventricular ejection fraction estimated to be 65-70%. No evidence of left ventricular hypertrophy . Pleural effusion. All other cardiac chamber size are within normal limits . Focal aortic valve sclerosis with adequate cusp excursion. Mild Thickened mitral valve leaflets with normal excursion. Mild Mitral annulus and aortic root calcification. Pulmonic valve not well visualized. Normal tricuspid valve structure. IVC dilated at size 2.1 without physiologic collapse. A color flow and spectral Doppler study was performed and revealed: No aortic regurgitation. Trace mitral regurgitation. Peak aortic valve gradient of 35 mm Hg and a mean of 17 mmHg. Aortic valve area 1.8 cm2 calculated by continuity equation. Normal left ventricular diastolic function. Mild tricuspid regurgitation. Normal left ventricular diastolic function. Tricuspid systolic velocities suggests peak right ventricular systolic pressure of 51mmHg. No Pulmonic regurgitation present.
--- NOTE | 2017-02-27 12:45 | Pulmonology Progress Note ---
Assessment/Plan Problems: (1) Cirrhosis of liver (2) Multiorgan failure (3) Hepatic encephalopathy (4) Septic shock Assessment/Plan continue morphine drip comfortable Subjective ROS Limited/Unobtainable: Yes Allergies: Coded Allergies: No Known Allergies (Verified , 02/27/11) Objective Last 24 Hour Vital Signs Date Time Temp Pulse Resp B/P (MAP) Pulse Ox O2 Delivery O2 Flow Rate FiO2 02/27/17 12:23 98.1 02/27/17 11:36 28 02/27/17 11:05 24 02/27/17 10:35 26 02/27/17 10:16 18 02/27/17 08:00 98.1 82 21 84/50 95 02/27/17 06:51 14 02/27/17 04:20 14 02/27/17 04:00 99.5 81 15 78/42 95 Nasal Cannula 3.0 02/27/17 02:13 14 02/27/17 00:34 98.6 80 14 80/48 97 Nasal Cannula 3.0 02/26/17 22:40 14 02/26/17 21:54 14 02/26/17 20:00 98.2 82 20 85/45 98 Nasal Cannula 3.0 02/26/17 19:10 94 Nasal Cannula 3.0 28 02/26/17 19:10 85 18 Nasal Cannula 3.0 02/26/17 19:10 Nasal Cannula 3.0 02/26/17 16:54 14 02/26/17 15:53 97.9 79 20 86/44 96 Nasal Cannula 2.0 02/26/17 13:50 14 Intake and Output 02/26/17 02/27/17 19:00 07:00 Output Total 25 ml 15 ml Balance -25 ml -15 ml Output Urine Total 25 ml 15 ml # Voids 1 Objective agonal breathing on morphine drip Current Medications Medications (Trade) Dose Ordered Sig/Gabby Route PRN Reason Start Time Stop Time Status Last Admin Dose Admin Acetaminophen (Tylenol) 650 mg Q4H PRN ORAL fever (temp> 100.5F) 02/23/17 11:15 03/25/17 11:14 02/24/17 17:30 Albuterol/ Ipratropium (Albuterol/ Ipratropium) 3 ml Q4H PRN HHN Shortness of Breath 02/23/17 11:15 02/28/17 11:14 Artificial Tears (Akwa-Tears) 1 drop QIDPRN PRN BOTH EYES Dry Eyes 02/25/17 11:15 03/27/17 11:14 Chlorhexidine Gluconate (María Elena-Hex 2%) 1 applic DAILY@2000 TOPIC 02/25/17 20:00 03/27/17 19:59 02/26/17 20:26 Glycopyrrolate (Robinul) 0.1 mg Q6H PRN IV excessive secretions 02/25/17 11:15 03/27/17 11:14 Haloperidol Lactate (Haldol) 1 mg Q30M PRN IM Agitation 02/25/17 11:15 03/27/17 11:14 Morphine Sulfate 30 ml @ 0 mls/hr DRAGLINE OILER Protocol PRN IV PAIN *COMFORT CARE ONLY* 02/25/17 13:30 02/27/17 13:29 02/27/17 11:53 Prochlorperazine (Compazine) 10 mg Q6H PRN ORAL Nausea & Vomiting 02/25/17 11:15 03/27/17 11:14 KAT DARNELL Feb 27, 2017 12:44
--- NOTE | 2017-02-27 12:50 | Internal Med Progress Note ---
Subjective Date of Service: Feb 27, 2017 Physician Name Chu Esquivel Attending Physician Raz Zuniga MD Current Medications Medications (Trade) Dose Ordered Sig/Gabby Route PRN Reason Start Time Stop Time Status Last Admin Dose Admin Acetaminophen (Tylenol) 650 mg Q4H PRN ORAL fever (temp> 100.5F) 02/23/17 11:15 03/25/17 11:14 02/24/17 17:30 Albuterol/ Ipratropium (Albuterol/ Ipratropium) 3 ml Q4H PRN HHN Shortness of Breath 02/23/17 11:15 02/28/17 11:14 Artificial Tears (Akwa-Tears) 1 drop QIDPRN PRN BOTH EYES Dry Eyes 02/25/17 11:15 03/27/17 11:14 Chlorhexidine Gluconate (María Elena-Hex 2%) 1 applic DAILY@1999 TOPIC 02/25/17 20:00 03/27/17 19:59 02/26/17 20:26 Glycopyrrolate (Robinul) 0.1 mg Q6H PRN IV excessive secretions 02/25/17 11:15 03/27/17 11:14 Haloperidol Lactate (Haldol) 1 mg Q30M PRN IM Agitation 02/25/17 11:15 03/27/17 11:14 Morphine Sulfate 30 ml @ 0 mls/hr [employer]FORMATION [employer]ATE Protocol PRN IV PAIN *COMFORT CARE ONLY* 02/25/17 13:30 02/27/17 13:29 02/27/17 11:53 Prochlorperazine (Compazine) 10 mg Q6H PRN ORAL Nausea & Vomiting 02/25/17 11:15 03/27/17 11:14 Allergies: Coded Allergies: No Known Allergies (Verified , 02/27/11) ROS Limited/Unobtainable: Yes Subjective 51 YO M admitted with altered mental status. Now Respiratory failure. Patient terminally extubated 03/15/17; comfort measures in place. Family at bedside Objective Last Vital Signs Date Time Temp Pulse Resp B/P (MAP) Pulse Ox O2 Delivery O2 Flow Rate FiO2 02/27/17 12:23 98.1 02/27/17 11:36 28 02/27/17 08:00 82 84/50 95 02/27/17 04:00 Nasal Cannula 3.0 02/26/17 19:10 28 Intake and Output 02/26/17 02/27/17 19:00 07:00 Output Total 25 ml 15 ml Balance -25 ml -15 ml Output Urine Total 25 ml 15 ml # Voids 1 Objective eneral Appearance: WD/WN, lethargic EENT: PERRL/EOMI, normal ENT inspection Neck: non-tender, normal alignment, supple, normal inspection Cardiovascular: normal peripheral pulses, normal rate, regular rhythm, no gallop/murmur, no JVD Respiratory/Chest: no accessory muscle use, respiratory distress, crackles/ rales, rhonchi - bilaterally, expiratory wheezing Abdomen: normal bowel sounds, non tender, soft, no organomegaly, no mass Extremities: normal range of motion Skin: normal pigmentation, warm/dry Assessment/Plan Problem List: (1) Alcohol dependence (2) Cirrhosis of liver (3) Elevated liver enzymes (4) Altered mental status Assessment & Plan: ?due to liver cirrhosis? continue lactulose (5) Respiratory failure Assessment & Plan: Terminally extubated 02/25/17 per pulmonary (6) Sepsis Assessment & Plan: See ID note. Continue vanco, meropenem, amikacin and micafungin. Await culture results. (7) Septic shock (8) CHF (congestive heart failure) (9) Renal failure Assessment & Plan: See nephrology note. Assessment/Plan Prognosis poor; Comfort care. Family present and aware CHU ESQUIVEL Feb 27, 2017 12:50
[2017-02-27] MEDS ORDERED: PCA Morphine 1mg/ml 30 ML IV PRN ×2 (18:45→19:00)
[2017-02-27] MEDS: Dyna-Hex 2% Top Sol 2oz TOPIC SCH (20:57)
[2017-02-28 03:06] VITALS: BP 83/41
[2017-02-28 08:00] VITALS: BP 83/40
--- NOTE | 2017-02-28 14:38 | Nephrology Progress Note ---
Assessment/Plan Problem List: (1) Septic shock (2) Renal failure (3) Lactic acidosis (4) Multiorgan failure Assessment Renal failure acute Sepsis, Shock, HypoTensive Hypoglycemia Hyponatremia Hepatic encephalopathy Elevated troponin Lactic acidosis Respiratory failure on vent Plan Poor prognosis Hypotensive extubated comfort care pre terminal Subjective ROS Limited/Unobtainable: No Constitutional: Reports: malaise, weakness Objective Objective Last 24 Hour Vital Signs Date Time Temp Pulse Resp B/P (MAP) Pulse Ox O2 Delivery O2 Flow Rate FiO2 02/28/17 08:23 22 02/28/17 08:00 99.0 83 21 83/40 92 02/28/17 06:36 84 18 Nasal Cannula 3.0 02/28/17 06:36 97 Nasal Cannula 3.0 32 02/28/17 06:36 Nasal Cannula 3.0 32 02/28/17 04:00 21 02/28/17 03:06 97.2 84 20 83/41 85 Room Air 02/28/17 00:00 Nasal Cannula 3.0 02/28/17 00:00 20 02/27/17 23:05 96.4 84 20 80/42 93 Room Air 02/27/17 21:17 81 18 Nasal Cannula 3.0 02/27/17 21:17 Nasal Cannula 3.0 32 02/27/17 21:17 98 Nasal Cannula 3.0 32 02/27/17 20:00 98.4 82 19 88/46 96 02/27/17 16:00 99.1 85 22 93/44 94 02/27/17 15:35 24 Intake and Output 02/27/17 02/28/17 19:00 07:00 Output Total 20 ml Balance -20 ml Output Urine Total 20 ml Height (Feet): 5 Height (Inches): 8.00 Weight (Pounds): 160 General Appearance: no apparent distress Respiratory/Chest: decreased breath sounds Abdomen: distended Objective no change JORDON PRETTY Feb 28, 2017 14:38
--- NOTE | 2017-03-02 12:10 | Discharge Summary ---
Discharge Summary Hospital Course Date of Admission Feb 23, 2017 at 10:37 Date of Discharge Feb 28, 2017 at 14:30 Admitting Diagnosis hepatic encelapothy HPI Jalen Coats is a 51 year old male who was admitted on Feb 23, 2017 at 10:37 for Cirrhosis Of Liver Hospital Course [id number] Discharge Discharge Disposition Patient Discharge Diagnoses: Sheila Aguilar NP Mar 02, 2017 12:10
--- NOTE | 2017-03-02 16:45 | Discharge Summary 2 SIG ---
DATE OF ADMISSION: 02/23/2017 DATE OF DISCHARGE: 02/28/2017 BRIEF SUMMARY: The patient is an unfortunate 51-year-old male, who presented to ED for altered mental status. The patient was apparently admitted to [facility] two weeks prior and was diagnosed with alcoholic cirrhosis of the liver. He was discharged home. According to the patient's , he was found to be less responsive and confused. He was then taken to [facility]. On arrival to ED, he was hypotensive. Blood work showed hyponatremia, sodium level of 127. Creatinine was elevated to 9.9. BUN was 189. Ammonia level 307. Troponin was elevated to 0.065. Lactic acid was 5.9. He was given gentle IV hydration. He continued to deteriorate, GCS of 3 and had agonal breathing. He was orally intubated and a central line was inserted to the right femoral. He was admitted to intensive care unit. He was started on IV pressors and was given IV vancomycin, meropenem, and amikacin. A non-tunneled hemodialysis catheter was inserted on 02/23/2017. He was started on hemodialysis. He was continued on IV antibiotics and pressors and was started on steroids. Echocardiogram done showed ejection fraction of 65% to 70%. His examination was not suggestive of congestive heart failure. Per family conversation, the patient's family decided comfort care. He was terminally extubated on 02/25/2017. He was placed on morphine drip and he eventually . FINAL DIAGNOSES: 1. Septic shock. 2. Cirrhosis of liver. 3. Hepatic encephalopathy. 4. Multiorgan failure. 5. Lactic acidosis. 6. Acute renal failure. 7. Acute respiratory failure status post terminal extubation. 8. Altered mental status/hepatic encephalopathy due to liver cirrhosis. 9. Elevated liver enzymes. 10. Alcohol dependence. 11. Alcohol cirrhosis. 12. Comfort care/palliative care. Lalito Singh M.D. I have been assigned to dictate discharge summary on this account and I was not involved in the patient's management. Sheila Aguilar N.P. DR: NICKO JOB#: [id number] CC: NENO
== END 2017-02-28 14:30 | disposition expired | DRG 720 ==
LOC: EDBD 08:00 → EMR 08:25 → EDBEDREQ 10:21 → ICU 10:37 → EDBEDREQ 10:55 → 4W 02-25 13:08
PROC: 0BH17EZ Insertion of Endotracheal Airway into Trachea, Via Natural or Artificial Opening (ICD-10-PCS; principal; 2017-02-23)
PROC: 5A1945Z Respiratory Ventilation, 24-96 Consecutive Hours (ICD-10-PCS; principal; 2017-02-23)
PROC: B543ZZA Ultrasonography of Right Jugular Veins, Guidance (ICD-10-PCS; 2017-02-23)
PROC: 05HM33Z Insertion of Infusion Device into Right Internal Jugular Vein, Percutaneous Approach (ICD-10-PCS; 2017-02-23)
PROC: 5A1D70Z Performance of Urinary Filtration, Intermittent, Less than 6 Hours Per Day (ICD-10-PCS; 2017-02-23)
DX: A41.9 Sepsis, unspecified organism (principal); J96.00 Acute respiratory failure, unspecified whether with hypoxia or hypercapnia; R65.21 Severe sepsis with septic shock; N17.9 Acute kidney failure, unspecified; E16.2 Hypoglycemia, unspecified; E87.1 Hypo-osmolality and hyponatremia; I50.9 Heart failure, unspecified; K70.31 Alcoholic cirrhosis of liver with ascites; F10.20 Alcohol dependence, uncomplicated; E87.2 Acidosis; K72.90 Hepatic failure, unspecified without coma; I27.20 Pulmonary hypertension, unspecified; Z51.5 Encounter for palliative care
CPT/HCPCS: 31500; 36415; 36569; 36600; 71045; 76937; 80053; 80061; 80202; 81003; 82140; 82248; 82550; 82553; 82607; 82803; 82962; 82977; 83036; 83605; 83735; 83880; 84100; 84484; 84550; 85007; 85025; 86140; 86635; 86710; 87040; 87081; 87086; 87449; 93005; 93306; 94002; 94003; 94664; 94760